=== PATIENT | male | born 1960 | race Caucasian/White ===

== ENCOUNTER 2020-04-08 08:50 | Outpatient (REF) | payer MEDICARE, MEDICAID, SELFPAY ==
--- NOTE | 2020-04-08 08:51 | CT_ITS ---
EXAMINATION: CT CHEST SCREENING CLINICAL INFORMATION: Lung screening. COMPARISON: CT chest 08/11/2008 TECHNIQUE: Multidetector volumetric CT imaging of the chest is performed without contrast using low dose technique. Additional 2D coronal and sagittal reformatted images and axial 3D maximum intensity projection (MIP) images are generated on the CT workstation. This CT examination was performed using dose optimization techniques as appropriate, variously including the following: *Automated exposure control *Adjustment of mA and/or kV according to patient size (this includes techniques or standardized protocols for targeted exams where dose is matched to indication/reason for exam; i.e. extremities or head) *Use of iterative reconstruction technique DLP: 131 mGy-cm FINDINGS: LUNGS: The lungs are well-expanded and clear of acute pneumonic process. There is a 2 mm subpleural nodule left upper lobe axial image 122/6. No additional pulmonary nodules, mass or consolidation seen. MEDIASTINUM: The heart size and great vessels are normal caliber. There are coronary artery calcifications present. No pericardial effusion seen. The central trachea and bronchi appear widely patent. PLEURA: There is no pleural effusion. No pleural mass or thickening. AXILLA: Small shotty lymph nodes are seen in bilateral axilla. UPPER ABDOMEN: Visualized liver, spleen and adrenal glands appear unremarkable. OSSEOUS STRUCTURES: There are mild degenerative disc changes mid dorsal spine with ventral spondylosis from T6-T7 through T9-T10 disc levels. No lytic process. The paravertebral soft tissues are normal. CT/CT lung screening IMPRESSION: Punctate 2 mm nodule left upper lobe. ASSESSMENT: Lung-RADS category 2: Benign. RECOMMENDATION: Low dose annual CT chest exam.
== END 2020-04-08 08:51 | disposition home or self-care (01) ==
LOC: HO.CT 08:50
PROVIDERS: PCP Internal Medicine; Visit Provider Surgery
DX: Z12.2 Encounter for screening for malignant neoplasm of respiratory organs (principal); F17.210 Nicotine dependence, cigarettes, uncomplicated
CPT/HCPCS: 71250

== ENCOUNTER → 2021-03-03 09:27 | Outpatient (BNVA) | payer MEDICARE, MEDICAID, SELFPAY | PROVIDERS: PCP Internal Medicine; Visit Provider Internal Medicine | DX: E66.01 Morbid (severe) obesity due to excess calories (principal); G47.33 Obstructive sleep apnea (adult) (pediatric); J45.909 Unspecified asthma, uncomplicated | CPT/HCPCS: 99212 ==

== ENCOUNTER → 2021-04-02 10:05 | Outpatient (REF) | payer MEDICARE, MEDICAID, SELFPAY | LOC: HO.SL 10:05 | PROVIDERS: PCP Internal Medicine; Visit Provider Internal Medicine | DX: G47.33 Obstructive sleep apnea (adult) (pediatric) (principal); E66.01 Morbid (severe) obesity due to excess calories | CPT/HCPCS: 95806 ==

== ENCOUNTER → 2021-05-27 15:18 | Outpatient (BNVA) | payer MEDICARE, MEDICAID, SELFPAY | PROVIDERS: PCP Internal Medicine; Visit Provider Internal Medicine | DX: G47.33 Obstructive sleep apnea (adult) (pediatric) (principal); J45.909 Unspecified asthma, uncomplicated; E66.01 Morbid (severe) obesity due to excess calories; Z68.42 Body mass index [BMI] 45.0-49.9, adult | CPT/HCPCS: 99212 ==

== ENCOUNTER 2021-07-10 14:06 | Emergency (ER) | payer MEDICARE, MEDICAID, SELFPAY ==
[2021-07-10 14:22] VITALS: BP 152/75; PULSE 74; RESP 18; TEMP 36.7; O2SAT 99; BMI 52.6
--- NOTE | 2021-07-10 14:33 | ED.GENADULT ---
HPI - General Adult General Chief complaint: General Medical Stated complaint: unable to move neck Time Seen by Provider: 07/10/21 14:27 Source: patient Mode of arrival: ambulatory Limitations: no limitations History of Present Illness HPI narrative: 60 y/o male with history of obesity, active smoker, BONNIE, asthma, chronic back pain on chronic opiates who presents to the ER with acute onset of ?stiff neck? that he woke up with this morning. He reports over the last 2 days he started feeling slight twinges in the left side of his neck and some tightness. He used a heating pad yesterday with some relief. He reports waking up this morning with very limited range of motion in the head and neck due to pain and muscle tension. He took 1 of his Percocet that he is prescribed for his chronic back pain with no improvement in the neck pain. He denies any photophobia, fever, chills, trauma. MD complaint: Stiff neck Onset (ago): day(s) (2) Location: neck and back Radiation: back Severity: severe Severity scale (1-10): 9 Quality: stabbing, aching and constant Pain Consistency: constant Relieving factors: immobilization Exacerbating factors: movement Associated symptoms: denies other symptoms Treatments prior to arrival: other (Percocet) Related Data Home Medications Medication Instructions Recorded Confirmed albuterol sulfate 90 mcg/actuation 0 mcg INHALATION 03/03/21 03/03/21 aerosol inhaler atenolol 50 mg-chlorthalidone 25 1 tab PO DAILY 03/03/21 03/03/21 mg tablet ibuprofen 800 mg tablet 800 mg PO BID PRN 03/03/21 03/03/21 omeprazole 20 mg capsule,delayed 20 mg PO DAILY 03/03/21 03/03/21 release oxycodone 15 mg tablet 15 mg PO TID PRN 03/03/21 03/03/21 acetaminophen 500 mg tablet 0 mg PO 05/27/21 potassium chloride 20 mEq 20 meq PO BID 05/27/21 tablet,extended release(part/cryst) (Klor-Con M) Previous Rx's Medication Instructions Recorded diazepam 5 mg tablet (Valium) 5 mg PO TID PRN #7 tab 07/10/21 ibuprofen 800 mg tablet 800 mg PO Q8H PRN #20 tab 07/10/21 lidocaine 5 % topical patch 1 patch TOPICAL DAILY #15 ea 07/10/21 Allergies Allergy/AdvReac Type Severity Reaction Status Date / Time tramadol [TRAMADOL] Allergy Intermediate UPSET Verified 05/27/21 15:41 STOMACH, GI Upset hydromorphone [Dilaudid] Allergy Unknown unknown Verified 05/27/21 15:41 Review of Systems Review of Systems: Constitutional: No Fever, No Chills Cardiovascular: No Chest Pain, No SOB Gastrointestinal: No Nausea, No Vomiting, No abdominal Pain Musculoskeletal: + joint pain, + Myalgias Skin: No Skin Lesions, No rash Neuro: No Weakness, No Numbness, No Dizziness, No Headache Heme/Lymph: No Bruising, No Lymphadenopathy PMFSH Past Medical History Medical History Bronchial asthma Morbid exogenous obesity BONNIE (obstructive sleep apnea) Social History Social History Patient Tobacco Use Status: Current everyday Tobacco user Cigarette Packs Per Day: 1 Cigarettes Per Day: 20 Years Smoked: 59 years Advance Directives: No Advance Directives Information Provided: No Physical Exam ED Vital Signs: Vital Signs - 24 hr 07/10/21 14:22 Temperature 98.0 F Pulse Rate 74 Respiratory Rate 18 Blood Pressure 152/75 H Pulse Oximetry 99 BMI result Body Mass Index 52.6 Appearance: Alert. Oriented X3. Appears uncomfortable. Eyes: Pupils equal, round and reactive to light. ENT: Pharynx normal. Neck: Normal inspection. Diffuse soft tissue tenderness of the superior trapezius and left lateral soft tissues of the neck. Limited range of motion including rotation side to side due to pain. No nuchal rigidity. Skin changes. Upper back also with diffuse muscle spasm and tenderness. No midline tenderness. CVS: Normal heart rate and rhythm. Pulses normal. Respiratory: No respiratory distress. Breath sounds normal. Abdomen: Morbidly obese, Soft and nontender. +BS x4 Skin: Skin warm and dry. Normal skin color. Normal skin turgor. No rashes. Extremities: Normal inspection x4. Neuro: Oriented X 3. No motor deficit. No sensory deficit. Equal hand grasp bilaterally. Nonfocal. Ambulates with steady gait. Course Course Course Narrative: 60 y/o male presents to the ER with acute onset of nontraumatic neck pain and limited ROM with diffuse muscle tenderness. No meningeal signs. 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 Will treat with muscle relaxers, NSAIDS, gentle massage and ROM exercises. Management discussed with patient. Declining muscle relaxer here and would like to go home with Rx. Given IM toradol. Stable for d/c home. Discharge Plan Discharge Clinical Impression: Torticollis Patient Disposition: Home, Self-Care Instructions: Spasmodic Torticollis (ED) Additional Instructions: Take the prescribed medications as directed. Do not drive after taking Valium, it is a muscle relaxer that can cause lethargy. Use heat to the area several times per day. Work on gentle range of motion exercise in your head/neck. Gently massage the area to help ease muscle tension. Use topical Bengay or IcyHot to the area. Follow up with your doctor on Tuesday. If you develop new or worsening symptoms call 911 or come back to the ER for further evaluation. Prescriptions: New diazepam [Valium] 5 mg tablet 5 mg PO TID PRN (Reason: muscle spasm) Qty: 7 0RF ibuprofen 800 mg tablet 800 mg PO Q8H PRN (Reason: pain) Qty: 20 0RF lidocaine 5 % adhesive patch,medicated 1 patch topical DAILY Qty: 15 0RF Rx Instructions: leave on most painful area for up to 12 hrs No Action oxycodone 15 mg tablet 15 mg PO TID PRN0RF omeprazole 20 mg capsule,delayed release(DR/EC) 20 mg PO DAILY 0RF atenolol-chlorthalidone 50-25 mg tablet 1 tab PO DAILY 0RF albuterol sulfate 90 mcg/actuation HFA aerosol inhaler 0 mcg inhalation 0RF ibuprofen 800 mg tablet 800 mg PO BID PRN0RF potassium chloride [Klor-Con M20] 20 mEq tablet,ER particles/crystals 20 meq PO BID 0RF acetaminophen 500 mg tablet 0 mg PO 0RF
[2021-07-10] MEDS: Ketorolac Tromethamine 30 MG/ML VIAL IM (14:40)
[2021-07-10 14:52] VITALS: RESP 18
== END 2021-07-10 14:52 | disposition home or self-care (01) ==
PROVIDERS: Emergency Provider Emergency Medicine; PCP Internal Medicine
DX: M43.6 Torticollis (principal); F17.210 Nicotine dependence, cigarettes, uncomplicated; Z79.899 Other long term (current) drug therapy; Z71.6 Tobacco abuse counseling
CPT/HCPCS: 96372; 99283; 99284; J1885

== ENCOUNTER 2021-07-20 09:16 | Outpatient (REF) | payer MEDICARE, MEDICAID, SELFPAY ==
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
== END 2021-07-20 09:17 | disposition home or self-care (01) ==
LOC: HO.XRAY 09:16
PROVIDERS: PCP Internal Medicine; Visit Provider Internal Medicine
DX: M54.2 Cervicalgia (principal); M54.9 Dorsalgia, unspecified
CPT/HCPCS: 72052; 72072

== ENCOUNTER 2021-08-05 09:26 | Outpatient (REF) | payer MEDICARE, MEDICAID, SELFPAY ==
--- NOTE | ~2021-08-05 | CT_ITS ---
EXAMINATION: CT CHEST SCREENING CLINICAL INFORMATION: Nicotine dependent. COMPARISON: None. TECHNIQUE: Multidetector volumetric CT imaging of the chest is performed without contrast using low dose technique. Additional 2-D coronal and sagittal reformatted images and axial 3-D maximum intensity projection (MIP) images are generated on the CT workstation. This CT examination was performed using dose optimization techniques as appropriate, variously including the following: *Automated exposure control *Adjustment of mA and/or kV according to patient size (this includes techniques or standardized protocols for targeted exams where dose is matched to indication/reason for exam; i.e. extremities or head) *Use of iterative reconstruction technique DLP: 120 mGy-cm FINDINGS: LUNGS: The lungs are well expanded with a 3 mm nodule right upper lobe axial image 204/6. No additional nodules, mass or consolidation seen. No ground-glass density seen. MEDIASTINUM: The thyroid lobes are symmetric and normal. The central trachea and the bronchi are widely patent. Heart size and the great vessels are normal caliber. There are coronary artery calcifications present. No pericardial effusion seen. No abnormal sized mediastinal lymph nodes or mass seen. PLEURA: There is no pleural effusion. No pleural mass or thickening. AXILLA: No lymphadenopathy. UPPER ABDOMEN: The visualized liver, spleen, pancreas, and bilateral adrenal glands are unremarkable. OSSEOUS STRUCTURES: No lytic or sclerotic process seen. There is mild ventral spondylosis of mid dorsal spine. CT/CT lung screening IMPRESSION: 3 mm nodule right upper lobe. Trace coronary artery calcifications. ASSESSMENT: Lung-RADS category 2: Benign. RECOMMENDATION: Low-dose annual CT chest.
== END 2021-08-05 09:27 | disposition home or self-care (01) ==
LOC: HO.CT 09:26
PROVIDERS: PCP Internal Medicine; Visit Provider Physician Assistant Medical
DX: Z12.2 Encounter for screening for malignant neoplasm of respiratory organs (principal); F17.200 Nicotine dependence, unspecified, uncomplicated; R91.1 Solitary pulmonary nodule
CPT/HCPCS: 71271

== ENCOUNTER 2021-08-18 10:00 | Outpatient (RCR) | payer MEDICARE, MEDICAID, SELFPAY | END 2021-08-18 14:35 | disposition home or self-care (01) | LOC: HO.PT 10:00 | PROVIDERS: PCP Internal Medicine; Visit Provider Internal Medicine | DX: M54.2 Cervicalgia (principal); M54.9 Dorsalgia, unspecified | CPT/HCPCS: 97110; 97140; 97161; 97530 ==

== ENCOUNTER → 2021-11-05 15:10 | Outpatient (BNVA) | payer MEDICARE, MEDICAID, SELFPAY | PROVIDERS: PCP Internal Medicine; Referring Provider Internal Medicine; Visit Provider Nurse Practitioner | DX: R19.5 Other fecal abnormalities (principal); K21.9 Gastro-esophageal reflux disease without esophagitis | CPT/HCPCS: 99202 ==

== ENCOUNTER → 2021-12-01 09:53 | Outpatient (BNVA) | payer MEDICARE, MEDICAID, SELFPAY | PROVIDERS: PCP Internal Medicine; Visit Provider Internal Medicine | DX: G47.33 Obstructive sleep apnea (adult) (pediatric) (principal); J45.909 Unspecified asthma, uncomplicated; E66.01 Morbid (severe) obesity due to excess calories; Z68.43 Body mass index [BMI] 50.0-59.9, adult | CPT/HCPCS: 99212 ==

== ENCOUNTER → 2021-12-17 15:20 | Outpatient (BNVA) | payer MEDICARE, MEDICAID, SELFPAY | PROVIDERS: PCP Internal Medicine; Visit Provider Nurse Practitioner | DX: R19.5 Other fecal abnormalities (principal) | CPT/HCPCS: 99212 ==

== ENCOUNTER → 2022-01-15 09:19 | Outpatient (BNVA) | payer MEDICARE, MEDICAID, SELFPAY | PROVIDERS: PCP Internal Medicine; Visit Provider Nurse Practitioner | DX: R19.5 Other fecal abnormalities (principal); K21.9 Gastro-esophageal reflux disease without esophagitis; R79.89 Other specified abnormal findings of blood chemistry | CPT/HCPCS: 99212 ==

== ENCOUNTER 2022-05-26 07:57 | Day surgery (SDC) | payer MEDICARE, MEDICAID, SELFPAY ==
[2022-05-21 19:39] VITALS: BMI 45.4
--- NOTE | 2022-05-25 09:06 | P.CONAN_ITS ---
Documented by User: Donna Little NP 05/25/22 09:08 HPI - Anesthesia Eval Consult details Narrative: 61yo M for Colonoscopy PMFSH Active Problems Active Problems: All Active Problems (Updated 05/21/22 @ 19:36 by Jazmin Carbajal, RN) Smoker (Acute) Transaminitis (Acute) Positive FIT (fecal immunochemical test) (Acute) Positive colorectal cancer screening using Cologuard test (Acute) Bronchial asthma (Acute) BONNIE (obstructive sleep apnea) (Acute) Morbid exogenous obesity (Acute) Past Medical History Medical History (Updated 05/21/22 @ 19:36 by Jazmin Carbajal, RN) Back pain Bronchial asthma GERD (gastroesophageal reflux disease) High cholesterol Hypertension Marijuana smoker Morbid exogenous obesity BONNIE (obstructive sleep apnea) Pre-diabetes Family History Family History Mother Cancer Father Diabetes Surgical History Surgical History History of back surgery Hx of hemorrhoidectomy Hx of thumb surgery Hx of tonsillectomy Hx of tooth extraction Social History Social History Are you a primary child care group leader to a significant other at home: No Do you presently have visiting nurse or other home services: No Patient Tobacco Use Status: Current everyday Tobacco user Tobacco use type: Cigarette Cigarette Packs Per Day: 1.5 Cigarettes Per Day: 30.0 Years Smoked: 49 Smoked in Last 30 Days: Yes Use of substances other than those prescribed or required for medical reasons: Yes Substance Use Type Other:: SMOKES MULTIPLE TIMES DAILY Substance Use Frequency: Daily Have you been hit, kicked, punched, or otherwise hurt by someone within the past year? If so, by whom?: No Are you DNR?: No Advance Directives: No Advance Directives Information Provided: Yes Advance Directives on File: No Recently lost weight without trying: No Nutrition Risks: No Nutritional Risk Meds Allergies Allergy/AdvReac Type Severity Reaction Status Date / Time tramadol [TRAMADOL] Allergy Intermediate UPSET Verified 01/15/22 09:27 STOMACH, GI Upset hydromorphone [Dilaudid] Allergy Unknown unknown Verified 01/15/22 09:27 Home Medications Medication Instructions Recorded Confirmed Last Taken Type albuterol sulfate 90 mcg/actuation 2 puff inhalation DAILY 03/03/21 05/21/22 Unknown History aerosol inhaler atenolol 50 mg-chlorthalidone 25 1 tab PO DAILY 03/03/21 05/21/22 Unknown History mg tablet omeprazole 20 mg capsule,delayed 20 mg PO DAILY 03/03/21 05/21/22 Unknown History release oxycodone 15 mg tablet 15 mg PO TID PRN Pain 03/03/21 05/21/22 Unknown History fenofibrate 54 mg tablet 54 mg PO DAILY 11/05/21 05/21/22 Unknown History metformin 500 mg tablet,extended 500 mg PO DAILY 11/05/21 05/21/22 Unknown History release 24 hr potassium chloride 20 mEq 1 tab PO BID 05/21/22 05/21/22 Unknown History tablet,extended release(part/cryst) (Alma Rosado) Exam Exam Date and Time: May 25, 2022 0907 Height,Weight and Vital Signs: Height 5 ft 9 in Weight 139.706 kg Assessment and Plan Assessment Anesthesia Assessment: Chart Reviewed Documented by User: Afia Lemus MD 05/26/22 08:55 [facility] Past Medical History Medical History (Updated 05/21/22 @ 19:36 by Jazmin Carbajal RN) Back pain Bronchial asthma GERD (gastroesophageal reflux disease) High cholesterol Hypertension Marijuana smoker Morbid exogenous obesity BONNIE (obstructive sleep apnea) Pre-diabetes Family History Family History Mother Cancer Father Diabetes Family history of problems with anesthesia: No Surgical History Surgical History History of back surgery Hx of hemorrhoidectomy Hx of thumb surgery Hx of tonsillectomy Hx of tooth extraction History of Problems with Anesthesia: No Social History Social History Are you a primary child care group leader to a significant other at home: No Do you presently have visiting nurse or other home services: No Patient Tobacco Use Status: Current everyday Tobacco user Tobacco use type: Cigarette Cigarette Packs Per Day: 1.5 Cigarettes Per Day: 30.0 Years Smoked: 49 Smoked in Last 30 Days: Yes Use of substances other than those prescribed or required for medical reasons: Yes Substance Use Type Other:: SMOKES MULTIPLE TIMES DAILY Substance Use Frequency: Daily Have you been hit, kicked, punched, or otherwise hurt by someone within the past year? If so, by whom?: No Are you DNR?: No Advance Directives: No Advance Directives Information Provided: Yes Advance Directives on File: No Recently lost weight without trying: No Nutrition Risks: No Nutritional Risk Meds Allergies Allergy/AdvReac Type Severity Reaction Status Date / Time tramadol [TRAMADOL] Allergy Intermediate UPSET Verified 01/15/22 09:27 STOMACH, GI Upset hydromorphone [Dilaudid] Allergy Unknown unknown Verified 01/15/22 09:27 Home Medications Medication Instructions Recorded Confirmed Last Taken Type albuterol sulfate 90 mcg/actuation 2 puff inhalation DAILY 03/03/21 05/21/22 Unknown History aerosol inhaler atenolol 50 mg-chlorthalidone 25 1 tab PO DAILY 03/03/21 05/21/22 Unknown History mg tablet omeprazole 20 mg capsule,delayed 20 mg PO DAILY 03/03/21 05/21/22 Unknown History release oxycodone 15 mg tablet 15 mg PO TID PRN Pain 03/03/21 05/21/22 Unknown History fenofibrate 54 mg tablet 54 mg PO DAILY 11/05/21 05/21/22 Unknown History metformin 500 mg tablet,extended 500 mg PO DAILY 11/05/21 05/21/22 Unknown History release 24 hr potassium chloride 20 mEq 1 tab PO BID 05/21/22 05/21/22 Unknown History tablet,extended release(part/cryst) (Klor-Con M) Exam Airway Mallampati Class: II TM Dist: >3cm Neck ROM: Full Denture: Upper and Lower Heart: rrr Lungs: cta Assessment and Plan Assessment Anesthesia Assessment: Anesthesia Plan Discussed Final Anesthetic Review Family History of Problems with Anesthesia: No History of Problems with Anesthesia: No NPO: Yes ASA Class: III Final Preanesthetic Review: No Changes in Pt Med Stat, Meds/Allgs Chart Reviewed and Consent Obtained/Reviewed Patient Risk: Intermediate Procedure Risk: Intermediate Anesthetic Plan Anesthetic Plan: MAC: Disposition: Standard PACU
[2022-05-26 08:02] VITALS: BP 149/85; PULSE 81; RESP 18; TEMP 36.2; O2SAT 96
[2022-05-26 08:13] VITALS: BMI 45.4
[2022-05-26] MEDS: Lactated Ringers 1,000 ML 100 ML IVCONT (08:36)
[2022-05-26 08:48] LABS: Glucose, Whole Blood 125 mg/dL (60-115)
--- NOTE | 2022-05-26 09:09 | MHC.SHP ---
Pre-Procedural Eval Section A Date of Service: 05/26/22 Section B Chief Complaint: positive cologuard Details of Present Illness: 61 y.o M who is here for a diagnostic colonoscopy after a positive cologuard. No fam hx of colon cancer or advanced polyps Relevant Family History (Specify if Yes): No Present Medications: see Short Stay Collaborative assessment Medical History: Significant History (morbid obesity BMI 45, BONNIE) Allergies: Allergies Allergy/AdvReac Type Severity Reaction Status Date / Time tramadol [TRAMADOL] Allergy Intermediate UPSET Verified 01/15/22 09:27 STOMACH, GI Upset hydromorphone [Dilaudid] Allergy Unknown unknown Verified 01/15/22 09:27 Review of Systems Review of Systems Comment: 10 point ROS negative except as above Exam Exam Comment: Gen appear: No acute distress, well nourished HEENT: no icterus Chest: No overt resp distress Abd: soft, nontender, nondistended Psych: Stable affect, answering questions appropriately Neuro: A/Ox3 noted to move all extremities spontaneously Ext: no peripheral edema Plan Diagnosis/Plan: Unchanged I have reviewed the history and physical and performed a pertinent physical examination on my patient. No changes have occurred unless specified. Time Spent With Patient Time: Total time managing care of this patient today ____ minutes.
--- NOTE | 2022-05-26 09:20 | P.OP_ITS ---
Operative Note Operative Note Date of Service: 05/26/22 Narrative: Procedure: Colonoscopy Indication: + FIT test Endoscopist: Ellie Dewey MD Anesthesia Provider: Dr Afia Longoria Anesthesia type: MAC Instrument: Olympus [id number] Consent: Indication, risks vs benefits, and alternatives were discussed with the patient who gave written informed consent to proceed. EKG, pulse, pulse oximetry and blood pressure were monitored throughout the procedure. Please see anesthesia flowsheet. Procedure: The patient was brought to the procedure room and placed in the left lateral decubitus position. IV medications were administered by the anesthesia provider in attendance. A digital rectal exam was performed which was normal. The colonoscope was then inserted through the anus and advanced through the colon to the cecum at 85 cm. Mucosa was carefully examined under high definition white light as the instrument was slowly withdrawn in a retrograde panoramic fashion. Retroflexion was performed in rectum. The procedure was not difficult. There were no immediate obvious complications. The quality of the prep was BBPS: 2+3+2 = adequate Withdrawal time 40 minutes. Limitations: No limitations. Findings: Mucosa: Normal to cecum. Protruding lesions: * 1 sessile polyp of size 8 mm in transverse colon. Cold snare polypectomy was performed. The polyp was completely removed and retrieved. * 3 semi-pedunculated polyps of size 8-13 mm in transverse colon. Hot snare polypectomy was performed. The polyps were completely removed and retrieved. * 1 sessile polyp of size 22 mm in transverse colon. The polyp spanned over a fold. It was lifted with 3 cc of saline and then 3 cc of epi were injected in the base. Hot snare polypectomy was performed. The polyp was completely removed and retrieved using a rescue net. x2 Resolution 360 clips were placed at the polypectomy site. This was sent out in a separate jar. * 1 semi-pedunculated polyp of size 12 mm in sigmoid colon. Hot snare polypectomy was performed. The polyps were completely removed and retrieved. * 1 sessile polyp of size 5 mm in rectum. Cold snare polypectomy was performed. The polyp was completely removed and retrieved. * Medium internal hemorrhoids without stigmata of recent bleeding. Excavated lesions: * Few small mouthed diverticuli were noted in sigmoid colon. Impression: 1. Normal colon mucosa 2. Total of 7 polyps removed from transverse, and sigmoid colon and rectum. 3. Internal hemorrhoids 4. Mild diverticulosis Recommendations: - Follow path results. - Repeat colonoscopy in 3 years due to size and number of polyps. - Pt counseled regarding risk of post-polypectomy syndrome and bleeding in recovery area.
[2022-05-26 10:36] VITALS: BP 141/84; PULSE 74; RESP 16; TEMP 37.1; O2SAT 95
[2022-05-26 10:51] VITALS: BP 118/89; PULSE 70; RESP 16; TEMP 36.6; O2SAT 95
== END 2022-05-26 11:17 | disposition home or self-care (01) ==
PROVIDERS: Internal Medicine Gastroenterology; PCP Internal Medicine; Visit Provider Internal Medicine
PROC: 0DJD8ZZ Inspection of Lower Intestinal Tract, Via Natural or Artificial Opening Endoscopic (ICD-10-PCS; CPT 45378; principal; 2022-05-26 09:20)
DX: R19.5 Other fecal abnormalities (principal); D12.3 Benign neoplasm of transverse colon; D12.5 Benign neoplasm of sigmoid colon; K62.1 Rectal polyp; K57.30 Diverticulosis of large intestine without perforation or abscess without bleeding; K64.8 Other hemorrhoids; K21.9 Gastro-esophageal reflux disease without esophagitis; I10 Essential (primary) hypertension; E78.00 Pure hypercholesterolemia, unspecified; G47.33 Obstructive sleep apnea (adult) (pediatric); E66.01 Morbid (severe) obesity due to excess calories; E66.09 Other obesity due to excess calories; Z68.42 Body mass index [BMI] 45.0-49.9, adult; J45.909 Unspecified asthma, uncomplicated; R73.03 Prediabetes; Z79.84 Long term (current) use of oral hypoglycemic drugs; Z79.899 Other long term (current) drug therapy; Z88.8 Allergy status to other drugs, medicaments and biological substances; F12.90 Cannabis use, unspecified, uncomplicated; F17.210 Nicotine dependence, cigarettes, uncomplicated
CPT/HCPCS: 45385; 45381; 82947; 88305; J0171

== ENCOUNTER → 2022-06-09 08:20 | Outpatient (BNVA) | payer MEDICARE, MEDICAID, SELFPAY | PROVIDERS: PCP Internal Medicine; Visit Provider Nurse Practitioner | DX: R19.5 Other fecal abnormalities (principal); D12.6 Benign neoplasm of colon, unspecified; E66.09 Other obesity due to excess calories; I10 Essential (primary) hypertension; R73.03 Prediabetes; E78.00 Pure hypercholesterolemia, unspecified; F17.210 Nicotine dependence, cigarettes, uncomplicated; Z68.42 Body mass index [BMI] 45.0-49.9, adult | CPT/HCPCS: 99212 ==

== ENCOUNTER → 2022-06-15 10:17 | Outpatient (BNVA) | payer MEDICARE, MEDICAID, SELFPAY | PROVIDERS: PCP Internal Medicine; Visit Provider Internal Medicine | DX: G47.33 Obstructive sleep apnea (adult) (pediatric) (principal); J45.909 Unspecified asthma, uncomplicated; E66.01 Morbid (severe) obesity due to excess calories; Z68.42 Body mass index [BMI] 45.0-49.9, adult | CPT/HCPCS: 99212 ==

== ENCOUNTER 2022-09-10 08:13 | Outpatient (REF) | payer MEDICARE, MEDICAID, SELFPAY ==
--- NOTE | ~2022-09-10 | CT_ITS ---
EXAMINATION: CT CHEST SCREENING CLINICAL INFORMATION: Nicotine dependence. Current smoker. One pack per day x50 years. COMPARISON: CT chest 08/05/2021 TECHNIQUE: Multidetector volumetric CT imaging of the chest is performed without contrast using low dose technique. Additional 2D coronal and sagittal reformatted images and axial 3D maximum intensity projection (MIP) images are generated on the CT workstation. This CT examination was performed using dose optimization techniques as appropriate, variously including the following: *Automated exposure control *Adjustment of mA and/or kV according to patient size (this includes techniques or standardized protocols for targeted exams where dose is matched to indication/reason for exam; i.e. extremities or head) *Use of iterative reconstruction technique DLP: 131 mGy-cm FINDINGS: LUNGS: The lungs are well-expanded and clear of acute pneumonic process. Previously seen right lower lobe pulmonary nodule adjacent to major fissure is not visualized. There are no pulmonary nodules, mass or consolidation. MEDIASTINUM: The thyroid lobes are symmetric and normal. The central trachea and the bronchi are widely patent. Heart size and the great vessels are normal caliber. No abnormal size mediastinal or hilar lymph nodes CORONARY ARTERY CALCIFICATION: Mild coronary artery calcifications are visualized. PLEURA: There is no pleural effusion. No pleural mass or thickening. AXILLA: No lymphadenopathy. UPPER ABDOMEN: Unremarkable . OSSEOUS STRUCTURES: No aggressive lytic or sclerotic process seen. Mild ventral spondylosis dorsal spine. CT/CT lung screening IMPRESSION: Unremarkable CT chest exam. ASSESSMENT: Lung-RADS category 1: Negative. RECOMMENDATION: Low-dose annual CT chest.
== END 2022-09-10 08:14 | disposition home or self-care (01) ==
LOC: HO.CT 08:13
PROVIDERS: PCP Internal Medicine; Visit Provider Physician Assistant Medical
DX: Z12.2 Encounter for screening for malignant neoplasm of respiratory organs (principal); F17.210 Nicotine dependence, cigarettes, uncomplicated
CPT/HCPCS: 71271

== ENCOUNTER 2022-12-09 10:09 | Outpatient (AMB) | payer MEDICARE, MEDICAID, SELFPAY ==
[2022-12-09 10:15] VITALS: PULSE 61; O2SAT 98; BMI 45.9
--- NOTE | 2022-12-09 10:15 | A.OFFVIS_ITS ---
Intake Vital Signs 12/09/22 10:15 Height 5 ft 9 in Weight 310 lb 13.628 oz BMI 45.9 Pulse 61 Pulse Source Pulse Oximeter Pulse Oximetry (%) 98 Oxygen Delivery Method Room Air Intake Visit Reasons: alessia, Asthma Poultry Packer Required: No Allergies tramadol [TRAMADOL] Allergy (Intermediate, Verified 12/09/22 10:27) UPSET STOMACH, GI Upset hydromorphone [Dilaudid] Allergy (Unknown, Verified 12/09/22 10:27) unknown Medication List - Last Reconciled 12/09/22 by Quoc Smith MD albuterol sulfate 90 mcg/actuation 2 puffs inhalation DAILY atenolol-chlorthalidone 50-25 mg 1 tab PO DAILY gabapentin 300 mg PO BEDTIME ibuprofen 800 mg PO Q8H PRN lidocaine 5% 1 patch topical DAILY metformin ER 500 mg PO DAILY omeprazole 20 mg PO DAILY oxycodone 15 mg PO TID PRN potassium chloride ER (Klor-Con M) 20 mEq PO DAILY Do you need a note to return to daycare/school/sports/work: No HPI alessia HPI Details 62 years old gentleman with morbid obesity, Comes for 6 months follow-up for bronchial asthma/ALESSIA. Breathing has remained stable and he needs to use the rescue inhaler only 2 or 3 times per week. He has had. No acute exacerbations Weight shannon remains morbidly obese but has lost about 15 lb since his last visit in May. He is disabled, not physically very active except for doing some household works. He is trying to control. His diet As far as obstructive sleep apnea is concerned it is well controlled with the use of CPAP. He is very compliant, infected cannot sleep without putting on the CPAP mask. He has no issues with the mask or CPAP device. [facility] Medical History Back pain Bronchial asthma GERD (gastroesophageal reflux disease) High cholesterol Hypertension Marijuana smoker Morbid exogenous obesity Nicotine dependence, cigarettes, uncomplicated ALESSIA (obstructive sleep apnea) Pre-diabetes Surgical History History of back surgery Hx of hemorrhoidectomy Hx of thumb surgery Hx of tonsillectomy Hx of tooth extraction Family History Mother Cancer Father Diabetes Social History Are you a primary healthcare interpreter to a significant other at home: No Do you presently have visiting nurse or other home services: No Patient Tobacco Use Status: Current everyday Tobacco user Tobacco use type: Cigarette Cigarette Packs Per Day: 1.5 Cigarettes Per Day: 30.0 Years Smoked: 49 Review of Systems Const All systems reviewed & are unremarkable except as noted in HPI and below Eyes Reports no additional complaints ENT Reports no additional complaints Card Denies chest pain, Denies irregular heart rhythm and Denies leg edema Resp Reports as per HPI GI Reports no additional complaints Reports no additional complaints Musc Reports back pain and Reports arthralgias (Niece mostly) Skin/Breast Reports system reviewed and no additional complaints, except as documented Neuro Reports no additional complaints Psych Reports no additional complaints Physical Exam Vital Signs: Last Vital Signs Pulse 61 12/09/22 10:15 Pulse Ox 98 12/09/22 10:15 Oxygen Delivery Method Room Air 12/09/22 10:15 BMI result Body Mass Index 45.9 Const Other: Grossly overweight with round face. General: comfortable, no acute distress, alert and awake Orientation/consciousness: patient oriented x3 HEENT Head: Yes normal to inspection General nose exam: No nasal polyps present and No nasal discharge present Face and sinus: Yes sinuses nontender Mouth: oropharynx abnormals (Very crowded and narrow, Mallampati class 4) Throat: Yes posterior oropharynx normal Eyes General: appearance normal, both eyes and all related structures Neck Neck: Yes normal visual inspection, Yes no lymphadenopathy, Yes trachea midline, Yes no JVD and Yes other (Neck is very obese) Thyroid: Thyroid normal Chest Chest palpation & inspection: normal inspection of the chest, normal palpation of entire chest wall and no tenderness Resp Other: Percussion note not perceptible because of thick chest wall. Breath sounds are diminished ( especially over the basilar areas ) but equal on both sides. No audible wheezes rhonchi or crepitations are heard. Cardio Palpation: normal PMI Rate: regular rate Rhythm: regular rhythm Heart sounds: no gallops and no murmurs GI Palpation (GI): Soft to palpation, nontender, No hepatosplenomegaly present, no masses and Other GI palpation findings present (Abdomen is obese and protuberant) Auscultation: normal bowel sounds Back/Spine/Pelvis Thoracic/Lumbar Spine: thoracic and lumbar spine normal to inspection, thoraco- lumbar ROM limited and thoraco-lumbar spasm Skin General skin exam: no rashes or lesions noted Neuro General: patient oriented x3 and no focal motor deficits Cranial nerves: Yes CN's II-XII intact bilaterally Extrem General: Yes normal to inspection, Yes no clubbing, cyanosis or edema and Yes no calf tenderness Psych Appearance: grossly normal and well kempt Speech and movement: Normal speech and movement present Office Procedures Spirometry Testing Spirometry Comments: Spriometry done in the office, Dr. Smith has the results results scanned to his chart. [id number]- Spirometry Results Reviewed Results Reviewed: SPIROMETRY IN OFFICE Assessment & Plan Assessment & Plan (1) Morbid exogenous obesity: Comment: Patient trying to watch his diet, but cannot exercise much. He has lost SOME weight since his last visit. Does not want to join any weight management program. Instructed again about limiting his diet intake and doing some exercise . Code(s): E66.01 - Morbid (severe) obesity due to excess calories (2) LAESSIA (obstructive sleep apnea): Comment: HE DOES HAVE SEVERE OBSTRUCTIVE SLEEP APNEA. CURRENTLY USING PRESSURE OF 20 CM WITH A FULLFACE MASK. HE REMAINS VERY COMPLIANT AND ACTUALLY CANNOT SLEEP WITHOUT USING THE CPAP, COMMENDED FOR GOOD COMPLIANCE AND ADVISED TO CONTINUE USING IT EVERY NIGHT AT LEAST FOR 6 HOURS PER NIGHT. Code(s): G47.33 - Obstructive sleep apnea (adult) (pediatric) (3) Bronchial asthma: Comment: BRONCHIAL ASTHMA IS VERY MILD AND INTERMITTENT, SPIROMETRY =NORMAL MILD COUGH RELATED MOSTLY TO SMOKING. COUNSELED TO QUIT SMOKING BUT HE HAS NO INTENSION TO DO THAT ( AFRAID THAT HE WILL GAIN WEIGHT 0 AND MAY USE ALBUTEROL HFA ONLY P.R.N.. Code(s): J45.909 - Unspecified asthma, uncomplicated (4) Nicotine dependence, cigarettes, uncomplicated: Comment: CONTINUES TO SMOKE, 1 AND HALF PACK A DAY, HE SAY IS THAT HE HAS CUT DOWN FROM 2 PACKS TO 1.5 PACK. DOES NOT HAVE ANY WILL POWER ON INTENTION TO QUIT SMOKING COMPLETELY. HE IS IN ANNUAL LUNG SCREENING PROGRAM. Code(s): F17.210 - Nicotine dependence, cigarettes, uncomplicated Coding Level of Care Code Est Pt Level 3 (77214) Diagnoses Morbid exogenous obesity E66.01 ALESSIA (obstructive sleep apnea) G47.33 Bronchial asthma J45.909 Nicotine dependence, cigarettes, uncomplicated F17.210 CPT Codes Spirometry - CPT: 73219- Spirometry ([id number])
== END 2022-12-09 10:55 | disposition home or self-care (01) ==
PROVIDERS: PCP Internal Medicine; Visit Provider Internal Medicine
DX: E66.01 Morbid (severe) obesity due to excess calories (principal); G47.33 Obstructive sleep apnea (adult) (pediatric); J45.909 Unspecified asthma, uncomplicated; F17.210 Nicotine dependence, cigarettes, uncomplicated
CPT/HCPCS: 94010; 99213

== ENCOUNTER → 2022-12-09 10:09 | Outpatient (BNVA) | payer MEDICARE, MEDICAID, SELFPAY | PROVIDERS: PCP Internal Medicine; Visit Provider Internal Medicine | DX: J45.909 Unspecified asthma, uncomplicated (principal); G47.33 Obstructive sleep apnea (adult) (pediatric); F17.210 Nicotine dependence, cigarettes, uncomplicated | CPT/HCPCS: 94010; 99212 ==

== ENCOUNTER 2023-04-28 12:34 | Outpatient (REF) | payer MEDICARE, MEDICAID, SELFPAY | END 2023-04-28 12:35 | disposition home or self-care (01) | LOC: HO.MRI 12:34 | PROVIDERS: PCP Internal Medicine; Visit Provider Internal Medicine | DX: Z13.89 Encounter for screening for other disorder (principal) ==

== ENCOUNTER 2023-06-28 10:26 | Outpatient (AMB) | payer MEDICARE, MEDICAID, SELFPAY ==
--- NOTE | 2023-06-28 10:27 | A.OFFVIS_ITS ---
Intake Vital Signs 06/28/23 10:28 Height 5 ft 9 in BP 120/72 Blood Pressure Location Lt brachial Position Sitting Pulse 61 Pulse Source Pulse Oximeter Pulse Oximetry (%) 97 Oxygen Delivery Method Room Air Intake Visit Reasons: alessia Intake Note: pt is here for follow up and states he is alright, breathing was short winded on vacation, using cpap with no issues. would like replacement machine, it has been 5 years. Dramatic Director Required: No Allergies tramadol [TRAMADOL] Allergy (Intermediate, Verified 06/28/23 10:56) UPSET STOMACH, GI Upset hydromorphone [Dilaudid] Allergy (Unknown, Verified 06/28/23 10:56) unknown Medication List - Last Reconciled 06/28/23 by Quoc Smith MD albuterol sulfate 90 mcg/actuation 2 puffs inhalation DAILY atenolol-chlorthalidone 50-25 mg 1 tab PO DAILY gabapentin 400 mg PO BEDTIME ibuprofen 800 mg PO Q8H PRN lidocaine 5% 1 patch topical DAILY metformin ER 500 mg PO DAILY omeprazole 20 mg PO DAILY oxycodone 15 mg PO TID PRN potassium chloride ER (Klor-Con M) 20 mEq PO DAILY Do you need a note to return to daycare/school/sports/work: No HPI alessia HPI Details THIS 62 YEARS OLD GENTLEMAN WITH MORBID OBESITY, AND DIAGNOSIS OF OBSTRUCTIVE SLEEP APNEA SINCE 2008, COMES FOR FOLLOW-UP FOR HIS USE OF CPAP AND LOOKING FOR HAVING A NEW REPLACEMENT CPAP DEVICE. HOWEVER ACCORDING TO OUR RECORDS HE GOT THE NEW DEVICE BACK IN 2020, BUT IT NEEDS TO BE DOUBLE CHECKED. HE CLAIMS THAT HE USES HIS CPAP VERY REGULARLY EVERY NIGHT AND SLEEPS WELL. THE COMPLIANCE REPORT INDICATES THAT HE IS USING LESS THAN 4 HOURS PER NIGHT BUT HE INSISTS THAT HE KEEPS THE CPAP ON WHOLE NIGHT. HE SAY IS HE CAN NOT SLEEP WITHOUT THE USE OF CPAP. .HE DENIES DAYTIME SLEEPINESS THE PROBLEM IS THAT HE REMAINS MORBIDLY OBESE, DID NOT WANT TO BE WEIGHED TODAY. HE IS TRYING TO CUT DOWN, ON PORTIONS OF THE DIET BUT DOES NOT WANT TO GO TO ANY STRUCTURED WEIGHT MANAGEMENT PROGRAM. HE SMOKING 1 AND HALF PACK OF CIGARETTES A DAY. HAD A LONG TALK, BUT HE INSISTS ON KEEPING ON SMOKING. HE IS ALSO USING MARIJUANA ON A DAILY BASIS( SMOKING) HIS EXCUSES THAT HE HAS NO OTHER RECREATION . HE IS STAYING MOSTLY SEDENTARY, AT HOME, SAY IS THAT HE CAN NOT WALK MUCH BECAUSE OF HIS CHRONIC BACK PAIN. HE DOES PARTICIPATE IN ANNUAL LUNG SCREENING PROGRAM. [facility] Medical History Nicotine dependence, cigarettes, uncomplicated Back pain Marijuana smoker High cholesterol GERD (gastroesophageal reflux disease) Pre-diabetes Hypertension Bronchial asthma ALESSIA (obstructive sleep apnea) Morbid exogenous obesity Surgical History Hx of hemorrhoidectomy Hx of tooth extraction Hx of thumb surgery Hx of tonsillectomy History of back surgery Family History Mother Cancer Father Diabetes Social History Are you a primary personal carer to a significant other at home: No Do you presently have visiting nurse or other home services: No Patient Tobacco Use Status: Current everyday Tobacco user Tobacco use type: Cigarette Cigarette Packs Per Day: 1.5 Cigarettes Per Day: 30.0 Years Smoked: 49 Review of Systems Const All systems reviewed & are unremarkable except as noted in HPI and below Eyes Reports no additional complaints ENT Reports no additional complaints Card Denies chest pain, Denies irregular heart rhythm and Denies leg edema Resp Reports as per HPI GI Reports no additional complaints Reports no additional complaints Musc Reports back pain and Reports arthralgias (Niece mostly) Skin/Breast Reports system reviewed and no additional complaints, except as documented Neuro Reports no additional complaints Psych Reports no additional complaints Physical Exam Vital Signs: Last Vital Signs Pulse 61 06/28/23 10:28 BP 120/72 06/28/23 10:28 Pulse Ox 97 06/28/23 10:28 Oxygen Delivery Method Room Air 06/28/23 10:28 Const Other: Grossly overweight with round face. General: comfortable, no acute distress, alert and awake Orientation/consciousness: patient oriented x3 HEENT Head: Yes normal to inspection General nose exam: No nasal polyps present and No nasal discharge present Face and sinus: Yes sinuses nontender Mouth: oropharynx abnormals (Very crowded and narrow, Mallampati class 4) Throat: Yes posterior oropharynx normal Eyes General: appearance normal, both eyes and all related structures Neck Neck: Yes normal visual inspection, Yes no lymphadenopathy, Yes trachea midline, Yes no JVD and Yes other (Neck is very obese) Thyroid: Thyroid normal Chest Chest palpation & inspection: normal inspection of the chest, normal palpation of entire chest wall and no tenderness Resp Other: Percussion note not perceptible because of thick chest wall. Breath sounds are diminished ( especially over the basilar areas ) but equal on both sides. He does have a few scattered expiratory wheezes over the lower lobes. Cardio Palpation: normal PMI Rate: regular rate Rhythm: regular rhythm Heart sounds: no gallops and no murmurs GI Palpation (GI): Soft to palpation, nontender, No hepatosplenomegaly present, no masses and Other GI palpation findings present (Abdomen is obese and protuberant) Auscultation: normal bowel sounds Back/Spine/Pelvis Thoracic/Lumbar Spine: thoracic and lumbar spine normal to inspection, thoraco- lumbar ROM limited and thoraco-lumbar spasm Skin General skin exam: no rashes or lesions noted Neuro General: patient oriented x3 and no focal motor deficits Cranial nerves: Yes CN's II-XII intact bilaterally Extrem General: Yes normal to inspection, Yes no clubbing, cyanosis or edema and Yes no calf tenderness Psych Appearance: grossly normal and well kempt Speech and movement: Normal speech and movement present Results Reviewed Results Reviewed: Compliance report for the last 30 nights is reviewed. He has used 30/30 nights. Average use it per night is 3 hours 34 minutes. He is on CPAP of 20 cm. There is not much air leak. Residual AHI 2.8 Assessment & Plan Assessment & Plan (1) Morbid exogenous obesity: Comment: Patient trying to watch his diet, but cannot exercise much. He remains morbidly obese . Does not want to join any weight management program. Code(s): E66.01 - Morbid (severe) obesity due to excess calories Plan: Again had a lengthy discussion with him about need to lose weight. He will try to do it on his own. (2) ALESSIA (obstructive sleep apnea): Comment: HE DOES HAVE SEVERE OBSTRUCTIVE SLEEP APNEA. CURRENTLY USING PRESSURE OF 20 CM WITH A FULLFACE MASK. HE CLAIMS TO BE USING IT EVERY NIGHT AND FOR THE WHOLE NIGHT. HE CLAIMS THAT HE CAN NOT SLEEP WITHOUT THE CPAP. HE IS DEFINITELY BENEFITING FROM THE USE OF CPAP. HE INSISTS ON SAYING THAT HE IS USING THE CPAP WHOLE NIGHT, EVEN THOUGH HIS COMPLIANCE REPORT SHOWS THAT HE IS USING FOR LESS THAN 4 HOURS PER NIGHT . HE WANTS TO GET A REPLACEMENT UNIT, I WILL SEND A SCRIPT TO HIS DME PROVIDER. Code(s): G47.33 - Obstructive sleep apnea (adult) (pediatric) Plan: ADVISED TO CONTINUE USING THE CPAP EVERY NIGHT. WE WILL LOOK INTO IF HE IS ELIGIBLE TO HAVE A REPLACEMENT CPAP MACHINE. (3) Bronchial asthma: Comment: BRONCHIAL ASTHMA IS VERY MILD AND INTERMITTENT, SPIROMETRY LAST YEAR =NORMAL MILD COUGH RELATED MOSTLY TO SMOKING. Code(s): J45.909 - Unspecified asthma, uncomplicated Plan: CONTINUE TO USE ALBUTEROL HFA 2 PUFFS Q 6 HOURS P.R.N.. A COMPLETE PULMONARY FUNCTION TEST IS ORDERED, AND THEN WILL DECIDE IF HE NEEDS ANY ADDITIONAL THERAPY (4) Nicotine dependence, cigarettes, uncomplicated: Comment: CONTINUES TO SMOKE, 1 AND HALF PACK A DAY, HE CLAIMS THAT HE HAS CUT DOWN FROM 2 PACKS TO 1.5 PACK. DOES NOT HAVE ANY WILL POWER ON INTENTION TO QUIT SMOKING COMPLETELY. Code(s): F17.210 - Nicotine dependence, cigarettes, uncomplicated Plan: AGAIN EDUCATED ABOUT THE RISK AND SIDE EFFECTS FROM CONTINUED SMOKING. ,HE UNDERSTANDS WELL LUCKILY HE DOES PARTICIPATE IN ANNUAL LUNG. SCREENING PROGRAM Orders: Orders PFT pulmonary function test Today E66.01 - Morbid (severe) obesity due to excess calories, F17.210 - Nicotine dependence, cigarettes, uncomplicated, G47.33 - Obstructive sleep apnea (adult) (pediatric), J45.909 - Unspecified asthma, uncomplicated Coding Level of Care Code Est Pt Level 3 (71140) Diagnoses Morbid exogenous obesity E66.01 ALESSIA (obstructive sleep apnea) G47.33 Bronchial asthma J45.909 Nicotine dependence, cigarettes, uncomplicated F17.210
[2023-06-28 10:28] VITALS: BP 120/72; PULSE 61; O2SAT 97
== END 2023-06-28 10:56 | disposition home or self-care (01) ==
PROVIDERS: PCP Internal Medicine; Visit Provider Internal Medicine
DX: E66.01 Morbid (severe) obesity due to excess calories (principal); G47.33 Obstructive sleep apnea (adult) (pediatric); J45.909 Unspecified asthma, uncomplicated; F17.210 Nicotine dependence, cigarettes, uncomplicated
CPT/HCPCS: 99213

== ENCOUNTER → 2023-06-28 10:26 | Outpatient (BNVA) | payer MEDICARE, MEDICAID, SELFPAY | PROVIDERS: PCP Internal Medicine; Visit Provider Internal Medicine | DX: G47.33 Obstructive sleep apnea (adult) (pediatric) (principal); J45.909 Unspecified asthma, uncomplicated; E66.01 Morbid (severe) obesity due to excess calories; F17.210 Nicotine dependence, cigarettes, uncomplicated | CPT/HCPCS: 99212 ==

== ENCOUNTER 2023-07-13 10:58 | Outpatient (REF) | payer MEDICARE, SELFPAY ==
[2023-07-13 09:35] VITALS: PULSE 70; RESP 16; O2SAT 96
--- NOTE | 2023-07-13 11:42 | PFT_ITS ---
Flows: FEV1: 93 % of predicted at 3.04 L FVC: 95 % of predicted at 4.03 L FEV1/FVC: 75 % Bronchodilator response: Absent Volumes: No lung volume measurements performed secondary to a technical issue. Diffusion capacity: Normal Impression: No obstructive ventilatory defect. No bronchodilator response. MTDD
== END 2023-07-13 10:59 | disposition home or self-care (01) ==
LOC: HO.RESP 10:58
PROVIDERS: PCP Internal Medicine; Visit Provider Internal Medicine
DX: E66.01 Morbid (severe) obesity due to excess calories (principal); J45.909 Unspecified asthma, uncomplicated; G47.33 Obstructive sleep apnea (adult) (pediatric); F17.210 Nicotine dependence, cigarettes, uncomplicated
CPT/HCPCS: 94010; 94640; 94727; 94729

== ENCOUNTER → 2023-07-13 11:42 | Outpatient (BNV) | payer MEDICARE, SELFPAY | PROVIDERS: PCP Internal Medicine; Visit Provider Internal Medicine Pulmonary Disease | DX: J45.909 Unspecified asthma, uncomplicated (principal) | CPT/HCPCS: 94060; 94729 ==

== ENCOUNTER 2023-08-15 10:17 | Outpatient (AMB) | payer MEDICARE, MEDICAID, SELFPAY ==
[2023-08-15 10:28] VITALS: BP 124/80; PULSE 55; O2SAT 98; BMI 47.9
--- NOTE | 2023-08-15 10:28 | MHC.OFFVIS ---
Intake Vital Signs 08/15/23 10:28 Height 5 ft 9 in Weight 324 lb 1.272 oz BMI 47.9 BP 124/80 Blood Pressure Location Lt brachial Position Sitting Pulse 55 Pulse Source Pulse Oximeter Pulse Oximetry (%) 98 Oxygen Delivery Method Room Air Intake Visit Reasons: alessia Intake Note: pt is here for follow up and states he is here for follow up of pft. Allergies tramadol [TRAMADOL] Allergy (Intermediate, Verified 08/15/23 11:04) UPSET STOMACH, GI Upset hydromorphone [Dilaudid] Allergy (Unknown, Verified 08/15/23 11:04) unknown Medication List - Last Reconciled 08/15/23 by Quoc Smith MD albuterol sulfate 90 mcg/actuation 2 puffs inhalation DAILY atenolol-chlorthalidone 50-25 mg 1 tab PO DAILY gabapentin 400 mg PO BEDTIME ibuprofen 800 mg PO Q8H PRN lidocaine 5% 1 patch topical DAILY metformin ER 500 mg PO DAILY omeprazole 20 mg PO DAILY oxycodone 15 mg PO TID PRN potassium chloride ER (Klor-Con M) 20 mEq PO DAILY Do you need a note to return to daycare/school/sports/work: No HPI alessia HPI Details This 62 years old gentleman is here for follow-up. Continues to smoke 1 and half pack of cigarettes a day. He claims that he just can not stop smoking, it has become a stillborn habit. He has not tried nicotine products mainly because he can not afford. He can not walk fast due to his obesity and back pain, and even at a slow pace he can hardly walk for more than 1 block. So he is staying mostly in the house, sedentary. He is not able to lose weight. He does use the CPAP very regularly every night and sleeps well. [facility] Medical History Nicotine dependence, cigarettes, uncomplicated Back pain Marijuana smoker High cholesterol GERD (gastroesophageal reflux disease) Pre-diabetes Hypertension Bronchial asthma ALESSIA (obstructive sleep apnea) Morbid exogenous obesity Surgical History Hx of hemorrhoidectomy Hx of tooth extraction Hx of thumb surgery Hx of tonsillectomy History of back surgery Family History Mother Cancer Father Diabetes Social History Are you a primary associate director career services to a significant other at home: No Do you presently have visiting nurse or other home services: No Patient Tobacco Use Status: Current everyday Tobacco user Tobacco use type: Cigarette Cigarette Packs Per Day: 1.5 Cigarettes Per Day: 30.0 Years Smoked: 49 Review of Systems Const All systems reviewed & are unremarkable except as noted in HPI and below Eyes Reports no additional complaints ENT Reports no additional complaints Card Denies chest pain, Denies irregular heart rhythm and Denies leg edema Resp Reports as per HPI GI Reports no additional complaints Reports no additional complaints Musc Reports back pain and Reports arthralgias (Niece mostly) Skin/Breast Reports system reviewed and no additional complaints, except as documented Neuro Reports no additional complaints Psych Reports no additional complaints Physical Exam Vital Signs: Last Vital Signs Pulse 55 08/15/23 10:28 BP 124/80 08/15/23 10:28 Pulse Ox 98 08/15/23 10:28 Oxygen Delivery Method Room Air 08/15/23 10:28 BMI result Body Mass Index 47.9 Const Other: Grossly overweight with round face. General: comfortable, no acute distress, alert and awake Orientation/consciousness: patient oriented x3 HEENT Head: Yes normal to inspection General nose exam: No nasal polyps present and No nasal discharge present Face and sinus: Yes sinuses nontender Mouth: oropharynx abnormals (Very crowded and narrow, Mallampati class 4) Throat: Yes posterior oropharynx normal Eyes General: appearance normal, both eyes and all related structures Neck Neck: Yes normal visual inspection, Yes no lymphadenopathy, Yes trachea midline, Yes no JVD and Yes other (Neck is very obese) Thyroid: Thyroid normal Chest Chest palpation & inspection: normal inspection of the chest, normal palpation of entire chest wall and no tenderness Resp Other: Percussion note not perceptible because of thick chest wall. Breath sounds are diminished ( especially over the basilar areas ) but equal on both sides. He does have a few scattered expiratory wheezes over the lower lobes. Cardio Palpation: normal PMI Rate: regular rate Rhythm: regular rhythm Heart sounds: no gallops and no murmurs GI Palpation (GI): Soft to palpation, nontender, No hepatosplenomegaly present, no masses and Other GI palpation findings present (Abdomen is obese and protuberant) Auscultation: normal bowel sounds Back/Spine/Pelvis Thoracic/Lumbar Spine: thoracic and lumbar spine normal to inspection, thoraco-lumbar ROM limited and thoraco-lumbar spasm Skin General skin exam: no rashes or lesions noted Neuro General: patient oriented x3 and no focal motor deficits Cranial nerves: Yes CN's II-XII intact bilaterally Extrem General: Yes normal to inspection, Yes no clubbing, cyanosis or edema and Yes no calf tenderness Psych Appearance: grossly normal and well kempt Speech and movement: Normal speech and movement present Results Reviewed Results Reviewed: Pulmonary function test is essentially normal no evidence of obstructive or restrictive disorder. Compliance report for the last 30 nights is reviewed. He has used 29/30 nights, 97% Average use per night 8 hours 15 minutes. He does have moderate amount of air leak. Residual AHI only 3.7 Assessment & Plan Assessment & Plan (1) Morbid exogenous obesity: Comment: Patient trying to watch his diet, but cannot exercise much. He remains morbidly obese . Does not want to join any weight management program. Code(s): E66.01 - Morbid (severe) obesity due to excess calories Plan: Once again counseled about his diet, and to lose weight. (2) ALESSIA (obstructive sleep apnea): Comment: HE DOES HAVE SEVERE OBSTRUCTIVE SLEEP APNEA. CURRENTLY USING PRESSURE OF 20 CM WITH A FULLFACE MASK. HE CLAIMS TO BE USING IT EVERY NIGHT AND FOR THE WHOLE NIGHT. HE CLAIMS THAT HE CAN NOT SLEEP WITHOUT THE CPAP. HE IS DEFINITELY BENEFITING FROM THE USE OF CPAP. COMPLIANCE REPORT IS REVIEWED AND IS EXCELLENT, Code(s): G47.33 - Obstructive sleep apnea (adult) (pediatric) Plan: COMMENDED FOR GOOD USAGE OF THE CPAP. AND ENCOURAGED TO CONTINUE USING IT REGULARLY. (3) Bronchial asthma: Comment: BRONCHIAL ASTHMA IS VERY MILD AND INTERMITTENT, PULMONARY FUNCTION TEST IS BASICALLY NORMAL Code(s): J45.909 - Unspecified asthma, uncomplicated Plan: ALBUTEROL HFA 2 PUFFS Q 6 HOURS ONLY P.R.N. (4) Nicotine dependence, cigarettes, uncomplicated: Comment: CONTINUES TO SMOKE, 1 AND HALF PACK A DAY, HE CLAIMS THAT HE HAS CUT DOWN FROM 2 PACKS TO 1.5 PACK. DOES NOT HAVE ANY WILL POWER ON INTENTION TO QUIT SMOKING COMPLETELY. Code(s): F17.210 - Nicotine dependence, cigarettes, uncomplicated Plan: DISCUSSED IN GREAT DETAIL ABOUT THE RISKS OF ONGOING SMOKING. HE HAS AGREED TO USE NICOTINE LOZENGES, AND I WILL PRESCRIBED. Medications: New nicotine (polacrilex) 4 mg buccal Q6H PRN 108 ea 3RF nicotine cravings 30 days Coding Level of Care Code Est Pt Level 3 (01992) Diagnoses Morbid exogenous obesity E66.01 ALESSIA (obstructive sleep apnea) G47.33 Bronchial asthma J45.909 Nicotine dependence, cigarettes, uncomplicated F17.210
== END 2023-08-15 11:05 | disposition home or self-care (01) ==
PROVIDERS: PCP Internal Medicine; Visit Provider Internal Medicine
DX: E66.01 Morbid (severe) obesity due to excess calories (principal); G47.33 Obstructive sleep apnea (adult) (pediatric); J45.909 Unspecified asthma, uncomplicated; F17.210 Nicotine dependence, cigarettes, uncomplicated
CPT/HCPCS: 99213

== ENCOUNTER → 2023-08-15 10:17 | Outpatient (BNVA) | payer MEDICARE, MEDICAID, SELFPAY | PROVIDERS: PCP Internal Medicine; Visit Provider Internal Medicine | DX: J45.909 Unspecified asthma, uncomplicated (principal); G47.33 Obstructive sleep apnea (adult) (pediatric); E66.01 Morbid (severe) obesity due to excess calories; F17.210 Nicotine dependence, cigarettes, uncomplicated; Z68.42 Body mass index [BMI] 45.0-49.9, adult; Z79.891 Long term (current) use of opiate analgesic | CPT/HCPCS: 99212 ==

== ENCOUNTER 2023-09-20 09:35 | Outpatient (REF) | payer MEDICARE, MEDICAID, SELFPAY ==
--- NOTE | ~2023-09-20 | CT_ITS ---
EXAMINATION: CT LUNG SCREENING CLINICAL INFORMATION: Nicotine dependence, cigarettes, uncomplicated. The patient is a current smoker with a 50 pack-year history of smoking. COMPARISON: CT chest 09/10/2022. X-ray chest 07/25/2009. TECHNIQUE: Multidetector volumetric CT imaging of the chest is performed on a Siemens SOMATOM Perspective scanner without contrast using low dose technique. Additional 2D coronal and sagittal reformatted images and axial 3D maximum intensity projection (MIP) images are generated on the CT workstation. This CT examination was performed using dose optimization techniques as appropriate, variously including the following: *Automated exposure control *Adjustment of mA and/or kV according to patient size (this includes techniques or standardized protocols for targeted exams where dose is matched to indication/reason for exam; i.e. extremities or head) *Use of iterative reconstruction technique TOTAL EXAM DLP: 222 mGy-cm. CTDIvol: 5.33 mGy. FINDINGS: PULMONARY NODULES: A few scattered tiny micronodules are seen, none larger than 3 mm (sanches images of all have been saved). The largest nodule is in the right upper lobe measuring 3 mm in size, and is unchanged (5:184 compare prior 6:207). No new, increasing sized or concerning pulmonary nodules are seen. LUNGS: Lungs bilaterally symmetrically expanded. Mild emphysematous changes are present. Moderate bronchial wall thickening is seen. There is some minimal traction bronchiectasis seen at the lung bases. No effusion or pneumothorax. Central airways patent. MEDIASTINUM: No mediastinal, hilar or axillary adenopathy or free fluid collection. CORONARY ARTERY CALCIFICATION: Marked. THYROID GLAND: Unremarkable to the extent seen. CARDIOVASCULAR STRUCTURES: Aortic and heart size normal. No pericardial effusion. CHEST WALL/AXILLA: Unremarkable. UPPER ABDOMEN: There is hepatic steatosis but otherwise included portions of the solid organs in the upper abdomen unremarkable on noncontrast imaging. OSSEOUS STRUCTURES: Degenerative changes are present in the spine, most marked at T7-T8. No bony destructive lesions. CT/CT lung screening IMPRESSION: No finding seen worrisome for malignancy. Some small unchanged benign micronodules are present. ASSESSMENT: 1. Lung-RADS Category 2: Benign appearance or behavior of nodules. N/A 2. Lung-RADS Category S: Negative. There are no clinically significant or potentially clinically significant findings not related to the lungs requiring urgent additional evaluation. RECOMMENDATION: Continued routine annual low-dose CT lung screening in 1 year is recommended. An order for CT CHEST LOW DOSE CANCER SCREENING ([id number]) can be placed.
== END 2023-09-20 09:36 | disposition home or self-care (01) ==
LOC: HO.CT 09:35
PROVIDERS: PCP Internal Medicine; Visit Provider Nurse Practitioner Family
DX: Z12.2 Encounter for screening for malignant neoplasm of respiratory organs (principal); F17.210 Nicotine dependence, cigarettes, uncomplicated
CPT/HCPCS: 71271

== ENCOUNTER 2023-09-23 09:24 | Outpatient (AMB) | payer MEDICARE, MEDICAID, SELFPAY ==
--- NOTE | 2023-09-23 09:45 | HO.SPINEOV ---
Intake Visit Reasons: low back pain with sciatica Intake Note: Mr. Thayer is here today c/o low back pain Bottler Helper Required: No Allergies tramadol [TRAMADOL] Allergy (Intermediate, Verified 09/23/23 09:46) UPSET STOMACH, GI Upset hydromorphone [Dilaudid] Allergy (Unknown, Verified 09/23/23 09:46) unknown Assessment & Plan Assessment & Plan (1) Failed back syndrome of lumbar spine: Code(s): M96.1 - Postlaminectomy syndrome, not elsewhere classified Category: Medical (2) Status post lumbar spinal arthrodesis: Code(s): Z98.1 - Arthrodesis status Category: Medical Plan Dear colleague Thank you for referring Amadeo Thayer to the office today with a chief complaint of axial low back pain and left leg pain. HPI: This 62-year-old male presents with debilitating central back pain that can radiate to his left leg. The pain started after a work-related injury many years ago. He underwent a fusion surgery L4-[address] Merritt. He had [address] Hu. Comes today stating that he continues to have back pain that radiates to the posterior thigh. He denies weakness or numbness. He has been taking opioids to treat the pain. The following conservative treatment options were tried without success antiinflammatories, tylenol, physician guided home exercise plan, cortisone shots PMH: Hypertension, diabetes, chronic opioid use Medications: Oxycodone 15 mg, metformin, lidocaine patches, omeprazole, atenolol, albuterol Allergies: Tramadol Social history: Smokes 1 pack a day. Physical Exam: Pleasant male in obvious agony. He stands in a flexed position and deviates towards the right side. On inspection of the lumbar spine there is a well healed midline scar. Straight leg raise produces pain in the left hip. Hip tests are negative. SI joint provocative tests are negative. No motor or neurological deficits. Radiological Studies: MRI done at [place] on 05/06/2023 show status post L4-5 fusion. More interestingly, there is severe left L4 foraminal stenosis caused by a T2 hypointense substance. In addition, there is mild right L4 foraminal stenosis. The remainder of the lumbar spine is unremarkable. Impression/Plan: This patient is suffering from chronic back pain radiating to his posterior left thigh that started after work-related injury many years ago. An initial surgery provided good relief but subsequent surgeries due to failure of hardware never helped. MRI shows significant abnormality around the left L4 nerve root. I would like to obtain a CT of the lumbar spine to see if the hypointense substance represents bone. I will see the patient back after the CT scan is done. Thank you for allowing me to participate in your patients care. total time spent was 45minutes in counseling ,coordination of plan, personal review of imaging, surgical decision making and subsequent plan Joel Avalos MD, PhD Spine Fellowship Trained Neurosurgeon Director, [facility] Orders: Orders CT lumbar spine wo IV con Today M96.1 - Postlaminectomy syndrome, not elsewhere classified, Z98.1 - Arthrodesis status Coding Level of Care Code New Pt Level 4 (24186) Diagnoses Failed back syndrome of lumbar spine M96.1 Status post lumbar spinal arthrodesis Z98.1
== END 2023-09-23 09:54 | disposition home or self-care (01) ==
PROVIDERS: PCP Internal Medicine; Referring Provider Internal Medicine; Visit Provider Neurological Surgery
DX: M96.1 Postlaminectomy syndrome, not elsewhere classified (principal); Z98.1 Arthrodesis status
CPT/HCPCS: 99204; 99214

== ENCOUNTER → 2023-09-23 09:24 | Outpatient (BNVA) | payer MEDICARE, SELFPAY | PROVIDERS: PCP Internal Medicine; Visit Provider Neurological Surgery | DX: M96.1 Postlaminectomy syndrome, not elsewhere classified (principal); Z98.1 Arthrodesis status | CPT/HCPCS: 99202 ==

== ENCOUNTER 2023-11-11 08:19 | Outpatient (REF) | payer MEDICARE, SELFPAY ==
--- NOTE | ~2023-11-11 | CT_ITS ---
EXAMINATION: CT LUMBAR SPINE WITHOUT CONTRAST CLINICAL INFORMATION: Postlaminectomy syndrome COMPARISON: MRI lumbar spine on 02/07/2010 TECHNIQUE: Multiple 2 and 1.5 mm axial images of the lumbar spine were obtained from lower T12 to S1 levels without IV contrast enhancement. Bone window and soft tissue window images were reconstructed. Coronal and Sagittal bone window images were also reconstructed from the axial image data. This CT examination was performed using dose optimization techniques as appropriate, variously including the following: *Automated exposure control *Adjustment of mA and/or kV according to patient size (this includes techniques or standardized protocols for targeted exams where dose is matched to indication/reason for exam; i.e. extremities or head) *Use of iterative reconstruction technique DLP; 1734 mGy-cm FINDINGS: The visualized lumbar vertebrae are intact with normal alignment. T12/L1: Bony structures are intact with normal alignment. Intervertebral disc height is normal. Bilateral neuroforamina are patent. Bilateral apophyseal joints are intact with normal alignment. L-1/L-2: Bony structures are intact with normal alignment. Intervertebral disc height is normal. Bilateral neuroforamina are patent. Bilateral apophyseal joints are intact with normal alignment. L2/L3: Bony structures are intact with normal alignment. Intervertebral disc height is normal. Bilateral neuroforamina are patent. Bilateral apophyseal joints are intact with normal alignment. Bilateral apophyseal joints show loss of joint space, sclerosis, facet hypertrophy and osteophytosis. L3/L4: Bony structures are intact with normal alignment. Intervertebral disc height is normal. Bilateral neuroforamina are patent. Bilateral apophyseal joints are intact with normal alignment. Bilateral apophyseal joints show loss of joint space, sclerosis, facet hypertrophy and osteophytosis. L4/L5: L4-L5 spinal fusion with metallic cage containing bone graft is seen. There is, however, no bony union. Extensive erosions are seen at left L4-L5 vertebral endplates, invading into left lower L4 vertebral body. Large sharp anterior and smaller posterior syndesmophytes are present. Bilateral neuroforamina are patent. Bilateral apophyseal joints are intact with normal alignment. Bilateral apophyseal joints show loss of joint space, sclerosis, facet hypertrophy and osteophytosis. L5/S1: Bony structures are intact with normal alignment. Intervertebral disc height is normal. Bilateral neuroforamina are patent. Bilateral apophyseal joints are intact with normal alignment. Bilateral apophyseal joints show loss of joint space, sclerosis, facet hypertrophy and osteophytosis. CT/CT lumbar spine wo IV con IMPRESSION: 1. Interval performance of L4-L5 spinal fusion with metallic cage containing bone graft is seen. There is, however, no bony union. Extensive erosions are seen at left L4-L5 vertebral endplates, invading into left lower L4 vertebral body. Large sharp anterior and smaller posterior syndesmophytes are present. 2. 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
== END 2023-11-11 08:20 | disposition home or self-care (01) ==
LOC: HO.CT 08:19
PROVIDERS: PCP Internal Medicine; Visit Provider Neurological Surgery
DX: M96.1 Postlaminectomy syndrome, not elsewhere classified (principal); Z98.1 Arthrodesis status
CPT/HCPCS: 72132

== ENCOUNTER 2023-12-09 09:51 | Outpatient (AMB) | payer MEDICARE, MEDICAID, SELFPAY ==
--- NOTE | 2023-12-09 09:54 | A.SPINEOV_ITS ---
Intake Visit Reasons: CT follow up Intake Note: Mr. Thayer is here today to discuss results of his CT Scan. Slip Mixer Required: No Allergies tramadol [TRAMADOL] Allergy (Intermediate, Verified 09/23/23 09:46) UPSET STOMACH, GI Upset hydromorphone [Dilaudid] Allergy (Unknown, Verified 09/23/23 09:46) unknown Assessment & Plan Assessment & Plan (1) Pseudoarthrosis of lumbar spine: Code(s): S32.009K - Unspecified fracture of unspecified lumbar vertebra, subsequent encounter for fracture with nonunion Category: Medical (2) Status post lumbar spinal arthrodesis: Code(s): Z98.1 - Arthrodesis status Category: Medical Plan On 12/09/2023, I saw for follow-up Jose. This 63-year-old male suffering from intractable low back pain that he treats with 3 oxycodone a day. He had a previous L4-5 fusion done in 2 subsequent surgeries in that area. I obtained a CT of the lumbar spine that shows a non fusion of the L4-5 segment. I told the patient that I can offer him another attempt to fuse the L4-5 segment, which may help with his intractable low back pain. On the other hand, I made him aware that this would be a 4th surgery and we know from experienced that with every spine surgery the chances of success are decreased. He is going to talk to his primary care physician about pain management if he decides to go ahead with the revision surgery. He will let me know what he wants to do. Spent 25 minutes in his consult to review imaging and to discuss plan of care. Joel Avalos MD, PhD Spine Fellowship Trained Neurosurgeon Director, [facility] Coding Level of Care Code Est Pt Level 2 (11408) Diagnoses Pseudoarthrosis of lumbar spine S32.009K Status post lumbar spinal arthrodesis Z98.1
== END 2023-12-09 10:15 | disposition home or self-care (01) ==
PROVIDERS: PCP Internal Medicine; Visit Provider Neurological Surgery
DX: S32.009K Unspecified fracture of unspecified lumbar vertebra, subsequent encounter for fracture with nonunion (principal); Z98.1 Arthrodesis status
CPT/HCPCS: 99212

== ENCOUNTER → 2023-12-09 09:51 | Outpatient (BNVA) | payer MEDICARE, SELFPAY | PROVIDERS: PCP Internal Medicine; Visit Provider Neurological Surgery | DX: S32.009K Unspecified fracture of unspecified lumbar vertebra, subsequent encounter for fracture with nonunion (principal); M96.0 Pseudarthrosis after fusion or arthrodesis; Z98.1 Arthrodesis status | CPT/HCPCS: 99212 ==

== ENCOUNTER 2023-12-20 09:52 | Outpatient (AMB) | payer MEDICARE, MEDICAID, SELFPAY ==
--- NOTE | 2023-12-20 10:04 | A.OFFVIS_ITS ---
Vital Signs 12/20/23 10:05 Height 5 ft 9 in Weight 328 lb 7.82 oz BMI 48.5 BP 122/70 Blood Pressure Location Lt brachial Position Sitting Pulse 61 Pulse Source Pulse Oximeter Pulse Oximetry (%) 97 Oxygen Delivery Method Room Air Intake Visit Reasons: Obstructive sleep apnea Intake Note: pt is here for follow up of BONNIE, and using cpap everynight. Home Lighting Adviser Required: No Allergies tramadol [TRAMADOL] Allergy (Intermediate, Verified 12/20/23 10:16) UPSET STOMACH, GI Upset hydromorphone [Dilaudid] Allergy (Unknown, Verified 12/20/23 10:16) unknown Medication List - Last Reconciled 12/20/23 by Quoc Smith MD albuterol sulfate 90 mcg/actuation 2 puffs inhalation DAILY atenolol-chlorthalidone 50-25 mg 1 tab PO DAILY gabapentin 400 mg PO BEDTIME ibuprofen 800 mg PO Q8H PRN lidocaine 5% 1 patch topical DAILY metformin ER 500 mg PO DAILY nicotine (polacrilex) 4 mg buccal Q6H PRN 30 days omeprazole 20 mg PO DAILY oxycodone 15 mg PO TID PRN potassium chloride ER (Klor-Con M) 20 mEq PO DAILY Do you need a note to return to daycare/school/sports/work: No HPI HPI Obstructive sleep apnea: Details: 63 years old gentleman with morbid obesity and obstructive sleep apnea, comes for his routine follow-up after 6 months. He uses CPAP very regularly every night because without using CPAP he just can not go to sleep. Sleeps well, denies any daytime sleepiness. As far as CPAP machine is concerned it is working fine. As far as weight is concerned he has not been able to lose any weight. His works with a surgeon who specializes in weight management, she has tried to an list him in weight management program but he has declined. He is also smoker about 1 and half pack of cigarettes a day. He say is without smoking he would not relax. So he is not motivated to stop smoking. He does get annual low-dose lung CT , which is so for benign PFSH Medical History Nicotine dependence, cigarettes, uncomplicated Back pain Marijuana smoker High cholesterol GERD (gastroesophageal reflux disease) Pre-diabetes Hypertension Bronchial asthma BONNIE (obstructive sleep apnea) Morbid exogenous obesity Surgical History Hx of hemorrhoidectomy Hx of tooth extraction Hx of thumb surgery Hx of tonsillectomy History of back surgery Family History Mother Cancer Father Diabetes Social History Are you a primary career technical education instructor to a significant other at home: No Do you presently have visiting nurse or other home services: No Patient Tobacco Use Status: Current everyday Tobacco user Tobacco use type: Cigarette Cigarette Packs Per Day: 1.5 Cigarettes Per Day: 30.0 Years Smoked: 49 Review of Systems Const All systems reviewed & are unremarkable except as noted in HPI and below Eyes Reports no additional complaints ENT Reports no additional complaints Card Denies chest pain, Denies irregular heart rhythm and Denies leg edema Resp Reports as per HPI GI Reports no additional complaints Reports no additional complaints Musc Reports back pain and Reports arthralgias (Niece mostly) Skin/Breast Reports system reviewed and no additional complaints, except as documented Neuro Reports no additional complaints Psych Reports no additional complaints Physical Exam Vital Signs: Last Vital Signs Pulse 61 12/20/23 10:05 BP 122/70 12/20/23 10:05 Pulse Ox 97 12/20/23 10:05 Oxygen Delivery Method Room Air 12/20/23 10:05 BMI result Body Mass Index 48.5 Const Other: Grossly overweight with round face. General: comfortable, no acute distress, alert and awake Orientation/consciousness: patient oriented x3 HEENT Head: Yes normal to inspection General nose exam: No nasal polyps present and No nasal discharge present Face and sinus: Yes sinuses nontender Mouth: oropharynx abnormals (Very crowded and narrow, Mallampati class 4) Throat: Yes posterior oropharynx normal Eyes General: appearance normal, both eyes and all related structures Neck Neck: Yes normal visual inspection, Yes no lymphadenopathy, Yes trachea midline, Yes no JVD and Yes other (Neck is very obese) Thyroid: Thyroid normal Chest Chest palpation & inspection: normal inspection of the chest, normal palpation of entire chest wall and no tenderness Resp Other: Percussion note not perceptible because of thick chest wall. Breath sounds are diminished ( especially over the basilar areas ) but equal on both sides. He does have a few scattered expiratory wheezes over the lower lobes. Cardio Palpation: normal PMI Rate: regular rate Rhythm: regular rhythm Heart sounds: no gallops and no murmurs GI Palpation (GI): Soft to palpation, nontender, No hepatosplenomegaly present, no masses and Other GI palpation findings present (Abdomen is obese and protuberant) Auscultation: normal bowel sounds Back/Spine/Pelvis Thoracic/Lumbar Spine: thoracic and lumbar spine normal to inspection, thoraco- lumbar ROM limited and thoraco-lumbar spasm Skin General skin exam: no rashes or lesions noted Neuro General: patient oriented x3 and no focal motor deficits Cranial nerves: Yes CN's II-XII intact bilaterally Extrem General: Yes normal to inspection, Yes no clubbing, cyanosis or edema and Yes no calf tenderness Psych Appearance: grossly normal and well kempt Speech and movement: Normal speech and movement present Results Reviewed Results Reviewed: Compliance report for the last 30 nights is reviewed and he has used 29/30 nights, 97%. Average usage is recorded as 3 hours. However according to his statement he uses more than 6 hours every night. There is no air leakage and the residual AHI 1.0 Assessment & Plan Assessment & Plan (1) Morbid exogenous obesity: Comment: Patient trying to watch his diet, but cannot exercise much. He remains morbidly obese . Does not want to join any weight management program. Code(s): E66.01 - Morbid (severe) obesity due to excess calories Category: Medical Plan: Again discussed about weight management. He has no motivation to lose any weight. And does not want to join weight management program (2) BONNIE (obstructive sleep apnea): Comment: HE DOES HAVE SEVERE OBSTRUCTIVE SLEEP APNEA. CURRENTLY USING PRESSURE OF 20 CM WITH A FULLFACE MASK. HE CLAIMS TO BE USING IT EVERY NIGHT AND FOR THE WHOLE NIGHT. HE CLAIMS THAT HE CAN NOT SLEEP WITHOUT THE CPAP. HE IS DEFINITELY BENEFITING FROM THE USE OF CPAP. COMPLIANCE REPORT IS REVIEWED AND IS EXCELLENT, Code(s): G47.33 - Obstructive sleep apnea (adult) (pediatric) Category: Medical Plan: Commended for good compliance. His the CPAP device is not recording the usage correctly. He will be due for a new CPAP device early next year (3) Bronchial asthma: Comment: BRONCHIAL ASTHMA IS VERY MILD AND INTERMITTENT, PULMONARY FUNCTION TEST IS BASICALLY NORMAL Code(s): J45.909 - Unspecified asthma, uncomplicated Category: Medical Plan: Keep albuterol on hand and use 1 or 2 puffs Q 6 hours only p.r.n. (4) Nicotine dependence, cigarettes, uncomplicated: Comment: CONTINUES TO SMOKE, 1 AND HALF PACK A DAY, HE CLAIMS THAT HE HAS CUT DOWN FROM 2 PACKS TO 1.5 PACK. DOES NOT HAVE ANY WILL POWER OR INTENTION TO QUIT SMOKING COMPLETELY. Code(s): F17.210 - Nicotine dependence, cigarettes, uncomplicated Category: Medical Plan: ADVISED TO CONTINUE ANNUAL LUNG SCREENING PROGRAM . Coding Level of Care Code Est Pt Level 3 (39266) Diagnoses Morbid exogenous obesity E66.01 BONNIE (obstructive sleep apnea) G47.33 Bronchial asthma J45.909 Nicotine dependence, cigarettes, uncomplicated F17.210
[2023-12-20 10:05] VITALS: BP 122/70; PULSE 61; O2SAT 97; BMI 48.5
== END 2023-12-20 10:27 | disposition home or self-care (01) ==
PROVIDERS: PCP Internal Medicine; Visit Provider Internal Medicine
DX: E66.01 Morbid (severe) obesity due to excess calories (principal); G47.33 Obstructive sleep apnea (adult) (pediatric); J45.909 Unspecified asthma, uncomplicated; F17.210 Nicotine dependence, cigarettes, uncomplicated
CPT/HCPCS: 99213

== ENCOUNTER → 2023-12-20 09:52 | Outpatient (BNVA) | payer MEDICARE, MEDICAID, SELFPAY | PROVIDERS: PCP Internal Medicine; Visit Provider Internal Medicine | DX: J45.909 Unspecified asthma, uncomplicated (principal); E66.01 Morbid (severe) obesity due to excess calories; G47.33 Obstructive sleep apnea (adult) (pediatric); F17.210 Nicotine dependence, cigarettes, uncomplicated | CPT/HCPCS: 99212 ==

== ENCOUNTER 2024-06-28 09:49 | Outpatient (AMB) | payer MEDICARE, MEDICAID, SELFPAY ==
[2024-06-28 10:04] VITALS: BP 130/82; PULSE 64; O2SAT 95; BMI 47.2
--- NOTE | 2024-06-28 10:04 | MHC.OFFVIS ---
Vital Signs 06/28/24 10:04 Height 5 ft 9 in Weight 319 lb 10.724 oz BMI 47.2 BP 130/82 Blood Pressure Location Lt brachial Position Sitting Pulse 64 Pulse Source Pulse Oximeter Pulse Oximetry (%) 95 Oxygen Delivery Method Room Air Intake Visit Reasons: Obstructive sleep apnea Intake Note: pt is here for follow up and has a new cpap needs help with settings. Statistical Reporting Analyst Required: No Allergies tramadol [TRAMADOL] Allergy (Intermediate, Verified 06/28/24 10:19) UPSET STOMACH, GI Upset hydromorphone [Dilaudid] Allergy (Unknown, Verified 06/28/24 10:19) unknown Medication List - Last Reconciled 06/28/24 by Quoc Smith MD albuterol sulfate 90 mcg/actuation 2 puffs inhalation DAILY atenolol-chlorthalidone 50-25 mg 1 tab PO DAILY gabapentin 400 mg PO BEDTIME ibuprofen 800 mg PO Q8H PRN lidocaine 5% 1 patch topical DAILY metformin ER 500 mg PO DAILY nicotine (polacrilex) 4 mg buccal Q6H PRN 30 days omeprazole 20 mg PO DAILY oxycodone 15 mg PO TID PRN potassium chloride ER (Klor-Con M) 20 mEq PO DAILY semaglutide (Ozempic) 0.25 mg subcut QWEEK Do you need a note to return to daycare/school/sports/work: No HPI HPI Obstructive sleep apnea: Details: THIS 63 YEARS OLD GENTLEMAN WITH MORBID OBESITY AND SEVERE OBSTRUCTIVE SLEEP APNEA IS HERE FOR FOLLOW-UP AFTER HE GOT HIS NEW CPAP MACHINE. THE NEW CPAP DEVICE IS SET FOR CPAP OF 20 CM, BUT WITH A RAMP MODE STARTING FROM 4 CM UPWARDS IN ABOUT 20 MINUTES TO HIS MAXIMUM CPAP OF 20 CM. HE HAS DIFFICULTY WITH THE NEW MACHINE BECAUSE HE DOES NOT GET ENOUGH PRESSURE AT THE START. SOMETIMES HE HAS TO GO BACK TO HIS OLD CPAP DEVICE. TO SLEEP FOR REST OF THE NIGHT HE IS LOSING WEIGHT SLOWLY . CLAIMS THAT BREATHING IS OKAY AND HE USES ALBUTEROL ONLY NEEDED. STILL SMOKING 1 AND HALF PACK OF CIGARETTES A DAY. [facility] Medical History Nicotine dependence, cigarettes, uncomplicated Back pain Marijuana smoker High cholesterol GERD (gastroesophageal reflux disease) Pre-diabetes Hypertension Bronchial asthma BONNIE (obstructive sleep apnea) Morbid exogenous obesity Surgical History Hx of hemorrhoidectomy Hx of tooth extraction Hx of thumb surgery Hx of tonsillectomy History of back surgery Family History Mother Cancer Father Diabetes Social History Are you a primary youth care professional to a significant other at home: No Do you presently have visiting nurse or other home services: No Patient Tobacco Use Status: Current everyday Tobacco user Tobacco use type: Cigarette Cigarette Packs Per Day: 1.5 Cigarettes Per Day: 30.0 Years Smoked: 49 Review of Systems Const All systems reviewed & are unremarkable except as noted in HPI and below Eyes Reports no additional complaints ENT Reports no additional complaints Card Denies chest pain, Denies irregular heart rhythm and Denies leg edema Resp Reports as per HPI GI Reports no additional complaints Reports no additional complaints Musc Reports back pain and Reports arthralgias (Niece mostly) Skin/Breast Reports system reviewed and no additional complaints, except as documented Neuro Reports no additional complaints Psych Reports no additional complaints Physical Exam Vital Signs: Last Vital Signs Pulse 64 06/28/24 10:04 BP 130/82 06/28/24 10:04 Pulse Ox 95 06/28/24 10:04 Oxygen Delivery Method Room Air 06/28/24 10:04 BMI result Body Mass Index 47.2 Const Other: Grossly overweight with round face. General: comfortable, no acute distress, alert and awake Orientation/consciousness: patient oriented x3 HEENT Head: Yes normal to inspection General nose exam: No nasal polyps present and No nasal discharge present Face and sinus: Yes sinuses nontender Mouth: oropharynx abnormals (Very crowded and narrow, Mallampati class 4) Throat: Yes posterior oropharynx normal Eyes General: appearance normal, both eyes and all related structures Neck Neck: Yes normal visual inspection, Yes no lymphadenopathy, Yes trachea midline, Yes no JVD and Yes other (Neck is very obese) Thyroid: Thyroid normal Chest Chest palpation & inspection: normal inspection of the chest, normal palpation of entire chest wall and no tenderness Resp Other: Percussion note not perceptible because of thick chest wall. Breath sounds are diminished ( especially over the basilar areas ) but equal on both sides. He does have a few scattered expiratory wheezes over the lower lobes. Cardio Palpation: normal PMI Rate: regular rate Rhythm: regular rhythm Heart sounds: no gallops and no murmurs GI Palpation (GI): Soft to palpation, nontender, No hepatosplenomegaly present, no masses and Other GI palpation findings present (Abdomen is obese and protuberant) Auscultation: normal bowel sounds Back/Spine/Pelvis Thoracic/Lumbar Spine: thoracic and lumbar spine normal to inspection, thoraco-lumbar ROM limited and thoraco-lumbar spasm Skin General skin exam: no rashes or lesions noted Neuro General: patient oriented x3 and no focal motor deficits Cranial nerves: Yes CN's II-XII intact bilaterally Extrem General: Yes normal to inspection, Yes no clubbing, cyanosis or edema and Yes no calf tenderness Psych Appearance: grossly normal and well kempt Speech and movement: Normal speech and movement present Results Reviewed Results Reviewed: COMPLIANCE REPORT FOR THE LAST 30 NIGHTS IS REVIEWED AND THOUGH HE USES EVERY NIGHT 30/30 NIGHTS,, 100% HIS AVERAGE USE IT PER NIGHT IS 1 HOUR 22 MINUTES WHICH IS VERY SUBOPTIMAL. HE HAS EXPLAINED THAT BECAUSE HE HAS DIFFICULTY HE WITH RAMP MODE HE SOMETIMES SWITCH IS TO HIS OLD CPAP DEVICE, THUS HE DOES NOT USE THIS NEW MACHINE FOR ENOUGH HOURS. Assessment & Plan Assessment & Plan (1) Morbid exogenous obesity: Comment: Patient trying to watch his diet, but cannot exercise much. He remains morbidly obese . Does not want to join any weight management program. He is trying to cut down on his calories intake and lately he has lost about 10 lb of weight. Code(s): E66.01 - Morbid (severe) obesity due to excess calories Category: Medical Plan: Again encouraged to keep on watching his diet and try to walk 1 or 2 miles every day. (2) BONNIE (obstructive sleep apnea): Comment: HE DOES HAVE SEVERE OBSTRUCTIVE SLEEP APNEA. CURRENTLY USING PRESSURE OF 20 CM WITH A FULLFACE MASK. HE IS HAVING ISSUE WITH THE RAMP MODE, AND SOMETIME HE HAS TO TAKE THE NEW MACHINE OFF AND GO BACK TO THE OLD CPAP DEVICE. SO EVEN THOUGH HE USES IT EVERY NIGHT HIS AVERAGE USE IT PER NIGHT REMAINS VERY LOW. Code(s): G47.33 - Obstructive sleep apnea (adult) (pediatric) Category: Medical Plan: WE HAVE ELIMINATED THE RAMP MODE. CONTINUE PRESSURE OF 20 CM WITH FULLFACE MASK. AND HE IS ADVISED TO USE THE NEW CPAP EVERY NIGHT (3) Bronchial asthma: Comment: BRONCHIAL ASTHMA IS VERY MILD AND INTERMITTENT, PULMONARY FUNCTION TEST IS BASICALLY NORMAL Code(s): J45.909 - Unspecified asthma, uncomplicated Category: Medical Plan: USE ALBUTEROL HFA 2 PUFFS Q 6 HOURS P.R.N. (4) Nicotine dependence, cigarettes, uncomplicated: Comment: CONTINUES TO SMOKE, 1 AND HALF PACK A DAY, HE CLAIMS THAT HE HAS CUT DOWN FROM 2 PACKS TO 1.5 PACK. DOES NOT HAVE ANY WILL POWER OR MOTIVATION TO QUIT SMOKING COMPLETELY. Code(s): F17.210 - Nicotine dependence, cigarettes, uncomplicated Category: Medical Plan: ADVISED TO AT LEAST CUT DOWN THE NUMBER OF CIGARETTES GRADUALLY . Coding Level of Care Code Est Pt Level 3 (54156) Diagnoses Morbid exogenous obesity E66.01 BONNIE (obstructive sleep apnea) G47.33 Bronchial asthma J45.909 Nicotine dependence, cigarettes, uncomplicated F17.210
--- OUTSIDE RECORDS SUMMARY | 2024-06-28 10:20 | XMS_ITS | Patient Health Record ---
Author Organization [facility] Address [address] [place] [address] Care Team Providers Care Bread Racker Name Role Phone Selvin Kelly MD Primary Care Provider Unavaila Tl Stoddard Unavailable [phone] Reason For Referral No Information Encounters Encounter Location Date Provider Diagnosis [facility] [address] [place] [address] 03/20/2024 Tl Sanchez Plan Of Treatment No Information Insurance Providers Payer Name Payer Address Payer Phone Subscriber Number Group Number Insured Name Patient Relationship to Insured Coverage Start Date Coverage End Date Medicare National Govt [facility] [address] [place] [address] [id number] Amadeo Jaime Self - patient is the insured AARP Secondary to Medicare [address] [place] [address] [id number] Amadeo Jaime Self - patient is the insured
--- OUTSIDE RECORDS SUMMARY | 2024-06-28 10:21 | XMS_ITS ---
Author Organization [facility] Address [address] [place] [address] Care Team Providers Care Audio Visual Technician Name Role Phone Robin BARRERA, Selvin Primary Care Provider Unavaila Tl Stoddard Unavailable [phone] Encounters Encounter Location Date Provider Diagnosis [facility] [address] [place] [address] 04/03/2024 Tl Sanchez Plan Of Treatment No Information Progress Notes * Zohaib THAYEROB: [birth year] (63 yo M)Acc No.[id number]:04/03/2024 Progress Notes Patient:?Amadeo THAYER Provider:?Tl Sanchez DPM :1960???Age:63 Y???Sex:Male Eugene e:04/03/2024 Address: [address] [place] Pcp:Selvin Kelly MD Subjective: * Chief Complaints: * ??? * Medical History:? Objective: * Vitals:? Assessment: Plan: * Treatment: * Images: * The named appointment provid er may or may not be the originator of this progress note, and it is not deemed complete until electronically signed by the appointment provider. Sign off status: Pending * Provider:?Tl Sanchez DPM Date:?2023 Generated for Wilda mtz/Toni/eTransmitting on:?06/28/2024 10:20 AM EST
--- OUTSIDE RECORDS SUMMARY | 2024-06-28 10:21 | XMS_ITS ---
Author Organization [facility] Address [address] [place] [address] Care Team Providers Care Harness Cutter Name Role Phone Selvin Kelly MD Primary Care Provider Unavaila Tl Stoddard Unavailable [phone] REASON FOR VISIT cx DEAF AND HARD OF HEARING TEACHER 04/03 Encounters Encounter Location Date Provider Diagnosis [facility] [address] [place] [address] 03/20/2024 Tl Sanchez Plan Of Treatment No Information Progress Notes * Zohaib THAYEROB: [birth year] (63 yo M)Acc No.[id number]:03/20/2024 Patient:?Amadeo Thayer :1960???Age:63 Y???Sex:Male Address:[address] [place], [address] * true * Date:? Generated for Shoshanai bibi/Toni/eTransmitting on:?06/28/2024 10:20 AM EST
== END 2024-06-28 10:21 | disposition home or self-care (01) ==
PROVIDERS: PCP Internal Medicine; Visit Provider Internal Medicine
DX: E66.01 Morbid (severe) obesity due to excess calories (principal); G47.33 Obstructive sleep apnea (adult) (pediatric); J45.909 Unspecified asthma, uncomplicated; F17.210 Nicotine dependence, cigarettes, uncomplicated
CPT/HCPCS: 99213

== ENCOUNTER → 2024-06-28 09:49 | Outpatient (BNVA) | payer MEDICARE, MEDICAID, SELFPAY | PROVIDERS: PCP Internal Medicine; Visit Provider Internal Medicine | DX: G47.33 Obstructive sleep apnea (adult) (pediatric) (principal); J45.909 Unspecified asthma, uncomplicated; E66.01 Morbid (severe) obesity due to excess calories; F17.210 Nicotine dependence, cigarettes, uncomplicated; Z68.42 Body mass index [BMI] 45.0-49.9, adult | CPT/HCPCS: 99212 ==

== ENCOUNTER 2024-08-23 10:36 | Outpatient (REF) | payer MEDICARE, MEDICAID, SELFPAY ==
--- NOTE | ~2024-08-23 | MR_ITS ---
EXAMINATION: MR BRAIN WITHOUT CONTRAST CLINICAL INFORMATION: Chronic right-sided headaches; 63-year-old male. COMPARISON: None available. TECHNIQUE: MRI of the brain was obtained using routine sequences without contrast. Examination performed on a 1.5 Linnea Siemens high-field unit. FINDINGS: There is no diffusion restriction. There is no intracranial hemorrhage, acute infarction, mass effect, or edema. Ventricles, sulci, and cisterns are normal in size and configuration for patient age. No shift of midline. No abnormal hemosiderin deposition is identified. There are a few scattered punctate foci of white matter T2 hyperintensity in the periventricular, subcortical, and hemispheric deep white matter. These are nonspecific, but statistically most likely sequela of small vessel ischemia. Midline structures appear normally formed. The pituitary gland appears normal. Posterior fossa structures appear normal. Cerebellar tonsils are appropriately located. Major flow voids are preserved within the skull base. The globes and orbital contents demonstrate no abnormalities. Paranasal sinuses demonstrate mild polypoid mucosal thickening in the dependent right maxillary sinus. Minimal mucosal thickening seen throughout the ethmoid sinuses. There is a right mastoid effusion which extends into the right tympanic cavity. The left mastoid and middle ear cavity in signal. Extracranial soft tissues demonstrate no abnormalities. No suspicious bone marrow changes are evident. Atlantoaxial joint is normal. MR/MR head/brain wo con IMPRESSION: 1. No intracranial hemorrhage, acute infarction, mass effect, or edema. 2. Minimal small vessel ischemic changes. 3. Right mastoid effusion extending into the right tympanic cavity. Electronically signed by: Andres Holt MD 08/23/2024 11:52 AM EDT
--- OUTSIDE RECORDS SUMMARY | 2024-08-23 12:33 | XMS_ITS ---
Author Organization [facility] Address [address] [place] [address] Care Team Providers Care Polisher And Sander Name Role Phone Robin BARRERA, Selvin Primary Care Provider Unavaila Tl Stoddard Unavailable [phone] Encounters Encounter Location Date Provider Diagnosis [facility] [address] [place] [address] 04/03/2024 Tl Sanchez Plan Of Treatment No Information Progress Notes * Zohaib THAYEROB: [birth year] (63 yo M)Acc No.[id number]:04/03/2024 Progress Notes Patient:?Amadeo THAYER Provider:?Tl Sanchez DPM :1960???Age:63 Y???Sex:Male Eugene e:04/03/2024 Address: [address] [place] Pcp:Selvin Kelly MD Subjective: * Chief Complaints: [...] Sanchez DPM Date:?2023 Generated for Wilda mtz/Toni/eTransmitting on:?08/23/2024 12:33 PM EDT
--- OUTSIDE RECORDS SUMMARY | 2024-08-23 12:33 | XMS_ITS | Patient Health Record ---
Author Organization [facility] Address [address] [place] [address] Care Team Providers Care Mechanical Engineering Director Name Role Phone Selvin Kelly MD Primary Care Provider Unavaila Tl Stoddard Unavailable [phone] Reason For Referral No Information Encounters Encounter Location Date Provider Diagnosis [facility] [address] [place] [address] 03/20/2024 Tl Sanchez Plan Of Treatment No Information Insurance Providers Payer Name Payer Address Payer Phone Subscriber Number Group Number Insured Name Patient Relationship to Insured Coverage Start Date Coverage End Date Medicare National Govt [facility] [address] [place] [address] [id number] Amadeo Jaime Self - patient is the insured AARP Secondary to Medicare [address] [place] [address] [id number] Amadeo Jaime Self - patient is the insured
--- OUTSIDE RECORDS SUMMARY | 2024-08-23 12:33 | XMS_ITS ---
Author Organization [facility] Address [address] [place] [address] Care Team Providers Care Site Safety Representative Name Role Phone Selvin Kelly MD Primary Care Provider Unavaila Tl Stoddard [phone] REASON FOR VISIT cx SOFTWARE FIRMWARE ENGINEER 04/03 Encounters Encounter Location Date Provider Diagnosis [facility] [address] [place] [address] 03/20/2024 Tl Sanchez Plan Of Treatment No Information Progress Notes * Zohaib THAYEROB: [birth year] (63 yo M)Acc No.[id number]:03/20/2024 Patient:?Amadeo Thayer :1960???Age:63 Y???Sex:Male Address:[address] [place], [address] * true * Date:? Generated for Printi bibi/Toni/eTransmitting on:?08/23/2024 12:33 PM EDT
== END 2024-08-23 10:37 | disposition home or self-care (01) ==
LOC: HO.MRI 10:36
PROVIDERS: PCP Internal Medicine; Visit Provider Internal Medicine
DX: R51.9 Headache, unspecified (principal); G89.29 Other chronic pain
CPT/HCPCS: 70551

== ENCOUNTER → 2024-08-23 11:00 | Outpatient (BNV) | payer MEDICARE, MEDICAID, SELFPAY | PROVIDERS: PCP Internal Medicine; Visit Provider Radiology Diagnostic Radiology | DX: H74.8X1 Other specified disorders of right middle ear and mastoid (principal) | CPT/HCPCS: 70551 ==

== ENCOUNTER 2024-08-30 09:25 | Outpatient (AMB) | payer MEDICARE, MEDICAID, SELFPAY ==
[2024-08-30 09:27] VITALS: BP 122/70; PULSE 65; O2SAT 96; BMI 49.0
--- NOTE | 2024-08-30 09:27 | A.OFFVIS_ITS ---
Vital Signs 08/30/24 09:27 Height 5 ft 9 in Weight 331 lb 12.731 oz BMI 49.0 BP 122/70 Blood Pressure Location Lt brachial Position Sitting Pulse 65 Pulse Source Doppler Pulse Oximetry (%) 96 Oxygen Delivery Method Room Air Intake Visit Reasons: Obstructive sleep apnea Intake Note: Patient is here for a follow up on BONNIE, patient stated he has been using his CPAP machine. Allergies tramadol [TRAMADOL] Allergy (Intermediate, Verified 08/30/24 09:45) UPSET STOMACH, GI Upset hydromorphone [Dilaudid] Allergy (Unknown, Verified 08/30/24 09:45) unknown Medication List - Last Reconciled 08/30/24 by Quoc Smith MD albuterol sulfate 90 mcg/actuation 2 puffs inhalation DAILY atenolol-chlorthalidone 50-25 mg 1 tab PO DAILY gabapentin 400 mg PO BEDTIME ibuprofen 800 mg PO Q8H PRN lidocaine 5% 1 patch topical DAILY metformin ER 500 mg PO DAILY nicotine (polacrilex) 4 mg buccal Q6H PRN 30 days omeprazole 20 mg PO DAILY oxycodone 15 mg PO TID PRN potassium chloride ER (Klor-Con M) 20 mEq PO DAILY Do you need a note to return to daycare/school/sports/work: No HPI HPI Obstructive sleep apnea: Details: 63 YEARS OLD GENTLEMAN WITH SUPER MORBID OBESITY, HAPPY GOING, CASE OF SEVERE OBSTRUCTIVE SLEEP APNEA AND IS BEING TREATED WITH CPAP. SINCE JUNE OF THIS YEAR HE DID GET NEW CPAP. MACHINE WHICH IS WORKING GOOD USES HIS CPAP VERY REGULARLY UP TO 9 OR 10 HOURS EVERY NIGHT. INFECT HE IS NOT ABLE TO SLEEP AT ALL WITHOUT USING THE CPAP. HE STILL SMOKES, HAS MILD INTERMITTENT COUGH OR WHEEZE AND USES ALBUTEROL ONCE IN A WHILE. HE HAS BACK PAIN AND NOT ABLE TO DO MUCH WALKING. HE TRIES TO CONTROL HIS DIET, BUT HAS PUT ON MORE WEIGHT. HE DID WELL WHEN HE WAS ON OZEMPIC INJECTION, BUT NOW HE CAN NOT GET THIS MEDICINE DUE TO INSURANCE NON COVERAGE. [facility] Medical History Failed back syndrome of lumbar spine Hypertension High cholesterol Pre-diabetes Bronchial asthma BONNIE (obstructive sleep apnea) Nicotine dependence, cigarettes, uncomplicated Marijuana smoker GERD (gastroesophageal reflux disease) Tubular adenoma of colon Gastrointestinal multiple polyposis syndrome Morbid exogenous obesity Surgical History History of lumbar surgery History of colonoscopy History of hemorrhoidectomy History of thumb surgery History of tonsillectomy History of tooth extraction Family History Mother Cancer Father Diabetes Social History Are you a primary child care centre manager to a significant other at home: No Do you presently have visiting nurse or other home services: No Patient Tobacco Use Status: Current everyday Tobacco user Tobacco use type: Cigarette Cigarette Packs Per Day: 1.5 Cigarettes Per Day: 30.0 Years Smoked: 49 Review of Systems Const All systems reviewed & are unremarkable except as noted in HPI and below Eyes Reports no additional complaints ENT Reports no additional complaints Card Denies chest pain, Denies irregular heart rhythm and Denies leg edema Resp Reports as per HPI GI Reports no additional complaints Reports no additional complaints Musc Reports back pain and Reports arthralgias (Niece mostly) Skin/Breast Reports system reviewed and no additional complaints, except as documented Neuro Reports no additional complaints Psych Reports no additional complaints Physical Exam Vital Signs: Last Vital Signs Pulse 65 08/30/24 09:27 BP 122/70 08/30/24 09:27 Pulse Ox 96 08/30/24 09:27 Oxygen Delivery Method Room Air 08/30/24 09:27 BMI result Body Mass Index 49.0 Const Other: Grossly overweight with round face. General: comfortable, no acute distress, alert and awake Orientation/consciousness: patient oriented x3 HEENT Head: Yes normal to inspection General nose exam: No nasal polyps present and No nasal discharge present Face and sinus: Yes sinuses nontender Mouth: oropharynx abnormals (Very crowded and narrow, Mallampati class 4) Throat: Yes posterior oropharynx normal Eyes General: appearance normal, both eyes and all related structures Neck Neck: Yes normal visual inspection, Yes no lymphadenopathy, Yes trachea midline, Yes no JVD and Yes other (Neck is very obese) Thyroid: Thyroid normal Chest Chest palpation & inspection: normal inspection of the chest, normal palpation of entire chest wall and no tenderness Resp Other: Percussion note not perceptible because of thick chest wall. Breath sounds are diminished ( especially over the basilar areas ) but equal on both sides. He does have a few scattered expiratory wheezes over the lower lobes. Cardio Palpation: normal PMI Rate: regular rate Rhythm: regular rhythm Heart sounds: no gallops and no murmurs GI Palpation (GI): Soft to palpation, nontender, No hepatosplenomegaly present, no masses and Other GI palpation findings present (Abdomen is obese and protuberant) Auscultation: normal bowel sounds Back/Spine/Pelvis Thoracic/Lumbar Spine: thoracic and lumbar spine normal to inspection, thoraco- lumbar ROM limited and thoraco-lumbar spasm Skin General skin exam: no rashes or lesions noted Neuro General: patient oriented x3 and no focal motor deficits Cranial nerves: Yes CN's II-XII intact bilaterally Extrem General: Yes normal to inspection, Yes no clubbing, cyanosis or edema and Yes no calf tenderness Psych Appearance: grossly normal and well kempt Speech and movement: Normal speech and movement present Results Reviewed Results Reviewed: COMPLIANCE REPORT FOR THE LAST 30 NIGHTS REVIEWED. HE HAS USED 30/30 NIGHTS,. 100% AVERAGE USE IT PER NIGHT 9 HOURS 28 MINUTES. CPAP OF 20 CM. WITH A FULLFACE MASK. THERE IS SOME AIR LEAKAGE THE MASK SLIPS TO THE SIDE DURING NIGHT. THE RESIDUAL AHI 3.1 Assessment & Plan Assessment & Plan (1) Morbid exogenous obesity: Comment: Patient trying to watch his diet, but cannot exercise much. Does not want to join any weight management program. When he was on Ozempic therapy he had lost about 10-12 lb but he say is he can not get Ozempic due to insurance noncoverage. Code(s): E66.01 - Morbid (severe) obesity due to excess calories Category: Medical Plan: Discussed about diet and I told him to reduce the intake of carbohydrates as much as possible. Due to his chronic back problem( failed back surgery ) he can not do any walking or exercise. (2) BONNIE (obstructive sleep apnea): Comment: (Severe BONNIE - using pressure 20cm, full face mask . He is very compliant, and in fact without using the CPAP he just can not sleep. Code(s): G47.33 - Obstructive sleep apnea (adult) (pediatric) Category: Medical Plan: Commended for good compliance and continue to use the CPAP at present settings. (3) Bronchial asthma: Comment: (mild/intermittent - PFT essentially normal) Code(s): J45.909 - Unspecified asthma, uncomplicated Category: Medical Plan: Use albuterol 2 puffs Q 6 hours but only p.r.n. (4) Nicotine dependence, cigarettes, uncomplicated: Comment: (max 2ppd, now 1.5ppd) Code(s): F17.210 - Nicotine dependence, cigarettes, uncomplicated Category: Medical Plan: Discussed about quitting smoking. He is doing his best but not able to cut down the number of cigarettes any further. Advise that he should get annual lung scan with low-dose CT Coding Level of Care Code Est Pt Level 3 (58590) Diagnoses Morbid exogenous obesity E66.01 BONNIE (obstructive sleep apnea) G47.33 Bronchial asthma J45.909 Nicotine dependence, cigarettes, uncomplicated F17.210
--- OUTSIDE RECORDS SUMMARY | 2024-08-30 10:41 | XMS_ITS ---
Author Organization [facility] Address [address] [place] [address] Care Team Providers Care Mine Expert Name Role Phone Selvin Kelly MD Primary Care Provider Unavaila Tl Stoddard [phone] REASON FOR VISIT cx ORTHOPEDICS PEDIATRIC PHYSICIAN 04/03 Encounters Encounter Location Date Provider Diagnosis [facility] [address] [place] [address] 03/20/2024 Tl Sanchez Plan Of Treatment No Information Progress Notes * Zohaib THAYEROB: 961 (63 yo M)Acc No.[id number]:03/20/2024 Patient:?Amadeo Thayer :1960???Age:63 Y???Sex:Male Address:[address] [place], [address] * true * Date:? Generated for Printi bibi/Toni/eTransmitting on:?08/30/2024 10:41 AM EDT
--- OUTSIDE RECORDS SUMMARY | 2024-08-30 10:42 | XMS_ITS | Patient Health Record ---
Author Organization [facility] Address [address] [place] [address] Care Team Providers Care Slot Floor Person Name Role Phone Selvin Kelly MD Primary Care Provider Unavaila Tl Stoddard Unavailable [phone] Reason For Referral No Information Encounters Encounter Location Date Provider Diagnosis [facility] [address] [place] [address] 03/20/2024 Tl Sanchez Plan Of Treatment No Information Insurance Providers Payer Name Payer Address Payer Phone Subscriber Number Group Number Insured Name Patient Relationship to Insured Coverage Start Date Coverage End Date Medicare National Govt [facility] [address] [place] [address] [id number] Amadeo Jaime Self - patient is the insured AARP Secondary to Medicare [address] [place] [address] [id number] Amadeo Jaime Self - patient is the insured
--- OUTSIDE RECORDS SUMMARY | 2024-08-30 10:42 | XMS_ITS ---
[facility] Organization [facility] Address [address] [place] [address] Care Team Providers Care Proof Load Mechanic Name Role Phone Robin BARRERA, Selvin Primary Care Provider Unavaila Tl Stoddard Unavailable [phone] Encounters Encounter Location Date Provider Diagnosis [facility] [address] [place] [address] 04/03/2024 Tl Sanchez Plan Of Treatment No Information Progress Notes * Zohaib THAYEROB: [birth year] (63 yo M)Acc No.[id number]:04/03/2024 Progress Notes Patient:?Amadeo THAYER Provider:?Tl Sanchez DPM :1960???Age:63 Y???Sex:Male Eugene e:04/03/2024 Address[address] [id number] Pcp:Selvin Kelly MD Subjective: * Chief Complaints: [...] Sanchez DPM Date:?2023 Generated for Wilda mtz/Toni/eTransmitting on:?08/30/2024 10:41 AM EDT
== END 2024-08-30 09:53 | disposition home or self-care (01) ==
LOC: HO.HPS 09:26
PROVIDERS: PCP Internal Medicine; Visit Provider Internal Medicine
DX: E66.01 Morbid (severe) obesity due to excess calories (principal); G47.33 Obstructive sleep apnea (adult) (pediatric); J45.909 Unspecified asthma, uncomplicated; F17.210 Nicotine dependence, cigarettes, uncomplicated
CPT/HCPCS: 99213

== ENCOUNTER → 2024-08-30 09:25 | Outpatient (BNVA) | payer MEDICARE, MEDICAID, SELFPAY | PROVIDERS: PCP Internal Medicine; Visit Provider Internal Medicine | DX: G47.33 Obstructive sleep apnea (adult) (pediatric) (principal); E66.01 Morbid (severe) obesity due to excess calories; J45.909 Unspecified asthma, uncomplicated; F17.210 Nicotine dependence, cigarettes, uncomplicated; Z68.42 Body mass index [BMI] 45.0-49.9, adult | CPT/HCPCS: 99212 ==

== ENCOUNTER 2024-09-20 09:54 | Outpatient (REF) | payer MEDICARE, MEDICAID, SELFPAY ==
--- NOTE | ~2024-09-20 | CT_ITS ---
CLINICAL HISTORY: F17.210 - Nicotine dependence, cigarettes, uncomplicated CT lung cancer screening (LDCT) Comparison: CT/WA/SR - CT LUNG SCREENING - 09/20/23 09:[address]/REG/WA/SR - CT LUNG SCREENING - 09/10/22 08:36 EDT Technique: Axial CT images of the chest using low-dose technique. Referring provider counseled the patient on shared decision-making for LDCT screening. Additional counseling was provided on smoking cessation. Effective radiation dose total: DLP 115.7 mGycm, CTDIvol 3.1 mGy. Findings: Lung: Mild centrilobular and paraseptal emphysema. Stable 5.2 mm nodule of the right upper lobe series 4, image 68. Coronary artery calcifications: Severe Limited upper abdomen: Possible pill in the stomach. Other: None Impression: LungRADS 2 - Benign Appearance: Continue annual screening with low dose Chest CT in 12 months. ##L2# Category 1: Normal; continue annual screening Category 2: Benign appearance or behavior, continue annual screening Category 3: Probably benign, [address] recommended Category 4A: Suspicious, [address] recommended; may consider PET/CT Category 4B: Suspicious, Additional diagnostics and/or tissue sampling recommended Category 4X: Suspicious, Additional diagnostics and/or tissue sampling recommended Category 0: Recalls (incomplete screen due to Incomplete coverage, Noise, Respiratory motion, Expiration, Obscured by acute abnormality) This document has been electronically signed by: Ne Jansen MD on 09/20/2024 14:06:02
--- OUTSIDE RECORDS SUMMARY | 2024-09-20 10:47 | XMS_ITS ---
Author Organization [facility] Address [address] [place] [address] Care Team Providers Care Envelope Machine Adjuster Name Role Phone Robin BARRERA, Selvin Primary Care Provider Unavaila Tl Stoddard Unavailable [phone] Encounters Encounter Location Date Provider Diagnosis [facility] [address] [place] [address] 04/03/2024 Tl Sanchez Plan Of Treatment No Information Progress Notes * Zohaib THAYEROB: [birth year] (63 yo M)Acc No.[id number]:04/03/2024 Progress Notes Patient:?Amadeo THAYER Provider:?Tl Sanchez DPM :1960???Age:63 Y???Sex:Male Eugene e:04/03/2024 Address: [address] [id number] Pcp:Selvin Kelly MD Subjective: * Chief Complaints: [...] Sanchez DPM Date:?2023 Generated for Wilda mtz/Toni/eTransmitting on:?09/20/2024 10:47 AM EDT
--- OUTSIDE RECORDS SUMMARY | 2024-09-20 10:47 | XMS_ITS ---
Author Organization [facility] Address [address] [place] [address] Care Team Providers Care Dispatch Coordinator Name Role Phone Selvin Kelly MD Primary Care Provider Unavaila Tl Stoddard Unavailable [phone] REASON FOR VISIT cx [facility] 04/03 Encounters Encounter Location Date Provider Diagnosis [facility] [address] [place] [address] 03/20/2024 Tl Sanchez Plan Of Treatment No Information Progress Notes * Zohaib THAYEROB: [birth year] (63 yo M)Acc No.[id number]:03/20/2024 Patient:?Amadeo Thayer :1960???Age:63 Y???Sex:Male Address:[address] [place], [address] * true * Date:? Generated for Printi bibi/Toni/eTransmitting on:?09/20/2024 10:47 AM EDT
--- OUTSIDE RECORDS SUMMARY | 2024-09-20 10:47 | XMS_ITS | Patient Health Record ---
Author Organization [facility] Address [address] [place] [address] Care Team Providers Care Solar Installation Technician Name Role Phone Selvin Kelly MD Primary Care Provider Unavaila Tl Stoddard Unavailable [phone] Reason For Referral No Information Encounters Encounter Location Date Provider Diagnosis [facility] [address] [place] [address] 03/20/2024 Tl Sanchez Plan Of Treatment No Information Insurance Providers Payer Name Payer Address Payer Phone Subscriber Number Group Number Insured Name Patient Relationship to Insured Coverage Start Date Coverage End Date Medicare National Govt [facility] [address] [place] [address] [id number] Amadeo Jaime Self - patient is the insured AARP Secondary to Medicare [address] [place] [address] [phone] [id number] Amadeo Jaime Self - patient is the insured
== END 2024-09-20 09:55 | disposition home or self-care (01) ==
LOC: HO.CT 09:54
PROVIDERS: PCP Internal Medicine; Visit Provider Physician Assistant Medical
DX: Z12.2 Encounter for screening for malignant neoplasm of respiratory organs (principal); F17.210 Nicotine dependence, cigarettes, uncomplicated
CPT/HCPCS: 71271

== ENCOUNTER → 2024-09-20 09:56 | Outpatient (BNV) | payer MEDICARE, MEDICAID, SELFPAY | PROVIDERS: PCP Internal Medicine; Visit Provider Nuclear Medicine | DX: F17.210 Nicotine dependence, cigarettes, uncomplicated (principal) | CPT/HCPCS: 71271 ==

== ENCOUNTER 2025-03-04 09:26 | Outpatient (AMB) | payer MEDICARE, MEDICAID, SELFPAY ==
--- OUTSIDE RECORDS SUMMARY | 2024-04-03 05:30 | XMS_ITS ---
Author Organization [facility] Address [address] [place] [address] Care Team Providers Care Bill Board Poster Name Role Phone Robin BARRERA, Selvin Primary Care Provider UnavailTl Walls Unavailable [phone] Encounters Encounter Location Date Provider Diagnosis [facility] [address] [place] [address] 04/03/2024 Tl Sanchez Plan Of Treatment No Information Progress Notes * Zohaib THAYEROB: [birth year] (64 yo M)Acc No.[id number]:04/03/2024 Progress Notes Patient: Amadeo MILLAN Provider: Chhaya Sanchez DPM :1960 A ge:63 Y S ex:Male Date:04/03/2024 Address: [address] [facility] Pcp:Selvin Kelly MD Subjective: * Chief Complaints: [...] Date: 06/03/2023 Generated for Wilda mtz/Toni/Natanaelitting on: 10:33 AM EDT
--- NOTE | 2025-03-04 09:34 | A.OFFVIS_ITS ---
Vital Signs 03/04/25 09:35 Height 5 ft 9 in Weight 340 lb 9.827 oz BMI 50.3 BP 120/72 Blood Pressure Location Lt brachial Position Sitting Pulse 58 Pulse Source Pulse Oximeter Pulse Oximetry (%) 98 Oxygen Delivery Method Room Air Intake Visit Reasons: Obstructive sleep apnea Intake Note: pt is here for follow up and states he is using cpap everynight, and he is getting issues with the strap for his headgear. Talent Acquisition Assistant Required: No Allergies tramadol (TRAMADOL) Allergy (Intermediate, Verified 03/04/25 09:48) UPSET STOMACH, GI Upset hydromorphone (Dilaudid) Allergy (Unknown, Verified 03/04/25 09:48) unknown Medication List - Last Reconciled 03/04/25 by Quoc Smith MD albuterol sulfate 90 mcg/actuation 2 puffs inhalation DAILY atenolol-chlorthalidone 50-25 mg 1 tab PO DAILY gabapentin 400 mg PO BEDTIME ibuprofen 800 mg PO Q8H PRN lidocaine 5% 1 patch topical DAILY omeprazole 20 mg PO DAILY oxycodone 15 mg PO TID PRN potassium chloride ER (Klor-Con M) 20 mEq PO DAILY Do you need a note to return to daycare/school/sports/work: No HPI HPI Obstructive sleep apnea: Details: 64 years old gentleman who is morbidly obese, and has obstructive sleep apnea. Comes for his routine follow-up. He is an avid user of CPAP uses up to 10 hours every night and sleeps well. However he does have some discomfort from the straps, and has some air leak as well. In spite of that he gets good results from the use of CPAP. As far as weight is concerned he has not made any progress rather has gained a few lb of weight. He was on Ozempic injections but then it was not allowed by the insurance. He remains sedentary because due to back pain he can not walk much. He tries to control his diet, but it is not enough to make him lose weight. Continues to smoke 1 pack of cigarettes a day. Has intermittent bouts of cough and wheezing. Denies shortness of breath at rest but on walking around he does have moderate dyspnea. This is all related to his morbid obesity. [facility] Medical History Failed back syndrome of lumbar spine Hypertension High cholesterol Pre-diabetes Bronchial asthma BONNIE (obstructive sleep apnea) Nicotine dependence, cigarettes, uncomplicated Marijuana smoker GERD (gastroesophageal reflux disease) Tubular adenoma of colon Gastrointestinal multiple polyposis syndrome Morbid exogenous obesity Surgical History History of lumbar surgery History of colonoscopy History of hemorrhoidectomy History of thumb surgery History of tonsillectomy History of tooth extraction Family History Mother Cancer Father Diabetes Social History Are you a primary director long term care to a significant other at home: No Do you presently have visiting nurse or other home services: No Patient Tobacco Use Status: Current everyday Tobacco user Tobacco use type: Cigarette Cigarette Packs Per Day: 1.5 Cigarettes Per Day: 30.0 Years Smoked: 49 Review of Systems Const All systems reviewed & are unremarkable except as noted in HPI and below Eyes Reports no additional complaints ENT Reports no additional complaints Card Denies chest pain, Denies irregular heart rhythm and Denies leg edema Resp Reports as per HPI GI Reports no additional complaints Reports no additional complaints Musc Reports back pain and Reports arthralgias (Niece mostly) Skin/Breast Reports system reviewed and no additional complaints, except as documented Neuro Reports no additional complaints Psych Reports no additional complaints Physical Exam Vital Signs: Last Vital Signs Pulse 58 03/04/25 09:35 BP 120/72 03/04/25 09:35 Pulse Ox 98 03/04/25 09:35 Oxygen Delivery Method Room Air 03/04/25 09:35 BMI result Body Mass Index 50.3 Const Other: Grossly overweight with round face. General: comfortable, no acute distress, alert and awake Orientation/consciousness: patient oriented x3 HEENT Head: Yes normal to inspection General nose exam: No nasal polyps present and No nasal discharge present Face and sinus: Yes sinuses nontender Mouth: oropharynx abnormals (Very crowded and narrow, Mallampati class 4) Throat: Yes posterior oropharynx normal Eyes General: appearance normal, both eyes and all related structures Neck Neck: Yes normal visual inspection, Yes no lymphadenopathy, Yes trachea midline, Yes no JVD and Yes other (Neck is very obese) Thyroid: Thyroid normal Chest Chest palpation & inspection: normal inspection of the chest, normal palpation of entire chest wall and no tenderness Resp Other: Percussion note not perceptible because of thick chest wall. Breath sounds are diminished ( especially over the basilar areas ) but equal on both sides. He does have a few scattered expiratory wheezes over the lower lobes. Cardio Palpation: normal PMI Rate: regular rate Rhythm: regular rhythm Heart sounds: no gallops and no murmurs GI Palpation (GI): Soft to palpation, nontender, No hepatosplenomegaly present, no masses and Other GI palpation findings present (Abdomen is obese and protuberant) Auscultation: normal bowel sounds Back/Spine/Pelvis Thoracic/Lumbar Spine: thoracic and lumbar spine normal to inspection, thoraco- lumbar ROM limited and thoraco-lumbar spasm Skin General skin exam: no rashes or lesions noted Neuro General: patient oriented x3 and no focal motor deficits Cranial nerves: Yes CN's II-XII intact bilaterally Extrem General: Yes normal to inspection, Yes no clubbing, cyanosis or edema and Yes no calf tenderness Psych Appearance: grossly normal and well kempt Speech and movement: Normal speech and movement present Results Reviewed Results Reviewed: Compliance report is reviewed he used CPAP every night and up to 10 hours per night. There was some air leak. Residual AHI only 2.4 Assessment & Plan Assessment & Plan (1) Morbid exogenous obesity: Comment: Patient trying to watch his diet, but cannot exercise much. Does not want to join any weight management program. When he was on Ozempic therapy he had lost about 10-12 lb but he say is he can not get Ozempic due to insurance noncoverage. He also can not do much walking or any type of exercise due to his ongoing back pain. Code(s): E66.01 - Morbid (severe) obesity due to excess calories Category: Medical Plan: Talked to him about restricting the calories intake. Advise that he should consult with PCP to see if he can have an alternative anti obesity agent. (2) BONNIE (obstructive sleep apnea): Comment: (Severe BONNIE - using pressure 20cm, full face mask . He is very compliant, and in fact without using the CPAP he just can not sleep. Compliance is excellent. Code(s): G47.33 - Obstructive sleep apnea (adult) (pediatric) Category: Medical Plan: Commended for good compliance and advised to continue using the CPAP. Because there is some air leak he is advised to tighten the straps as much as tolerated. (3) Bronchial asthma: Comment: (mild/intermittent - PFT essentially normal) He uses albuterol only p.r.n. Code(s): J45.909 - Unspecified asthma, uncomplicated Category: Medical Plan: Albuterol HFA 2 puffs Q 6 hours p.r.n. for persistent cough or wheezing (4) Nicotine dependence, cigarettes, uncomplicated: Comment: (max 2ppd, now 1.5ppd). Code(s): F17.210 - Nicotine dependence, cigarettes, uncomplicated Category: Medical Plan: Counseled to quit smoking or at least try to cut down the cigarettes as much as possible. Continue to have annual LDCT. Coding Level of Care Code Est Pt Level 3 (15286) Diagnoses Morbid exogenous obesity E66.01 BONNIE (obstructive sleep apnea) G47.33 Bronchial asthma J45.909 Nicotine dependence, cigarettes, uncomplicated F17.210
[2025-03-04 09:35] VITALS: BP 120/72; PULSE 58; O2SAT 98; BMI 50.3
--- OUTSIDE RECORDS SUMMARY | 2025-03-04 10:33 | XMS_ITS | Encounter Summary ---
Author Organization [facility] Address [address] [place] [id number] Phone Care Team Providers Care Certified Nursing Attendant Name Role Phone Selvin Kelly MD Primary Care Provider [phone] Desi Bey MD Unavailable Hebert Panda MD Unavailable [phone] Selvin Kelly MD Unavailable [phone] Quoc Smith MD Unavailable Reason for Referral * Occupational Therapy (Routine) - Closed Specialty Diagnoses / Procedures Referred By Sunday garcia Referred To Contact Occupational Therapy Diagnoses Encounter for rehabilitation Sevlin Kelly MD Phone: tel: fax: [email or web address] [address] [place] [address] Phone: tel: Referral ID Status Reason Start Date Expiration Date Visits Re quested Visits Authorized [id number] Closed 10/15/2020 05/15/[phone] Encounter Details Date Type Department Care Team (Latest Contact Info) Description 10/15/2020 Transcribe Orders [facility] [address] [place] [address] Selvin Kelly MD [address] [place] [address] [phone] [email or web address] Encounter for rehabilitation (Primary Dx) Social History Tobacco Use Types Packs/Day Years Used Date Smoking Tobacco: Some Days Cigarettes 1.5 51.8 Started: 05/16/1973 Smokeless Tobacco: Never Alcohol Use Standard Drinks/Week Comments Yes 0 (1 standard drink = 0.6 oz pur e alcohol) 2-3 beers a month Sex and Gender Information Value Date Recorded Sex Assigned at Not on file Legal Sex Male 3:25 PM EST Gender Identity Not on file Sexual Orientation Not on file documented as of this encounter Plan of Treatment Upcoming Encounters Date Type Department Care Team (Late st Contact Info) Description 03/27/2025 11:30 AM EST Office Visit [facility] Internal Medicine [address] [place], [place] [phone] Selvin Kelly MD [address] [place], [place] [phone] Scheduled Referrals Name Type Priority Associated Diagnoses Orde r Schedule Ambulatory referral to [facility] Occupational Therapy Outpatient Referral Routine Encounter for rehabilitation Ordered: 10/15/2020 documented as of this encounter Visit Diagnoses Diagnosis Encounter for rehabilitation- Primary documented in this encounter Additional Health Concerns Infection Onset Date Last Indicated Resolved Time CoV-Risk 07/06/2024 07/06/2024 07/17/2024 1:23 AM EST Assessment Noted Time PHQ-9 Depression Total Score: 11 020 10:15 AM EST PHQ-2 Depression Total Score: 0 10/11/19 21 9:16 AM EDT documented as of this encounter Care Teams Certified Nursing Attendant Relationship Specialty Start Date End Date Selvin Kelly MD [address] [place] [address] PCP - General Internal Medicine 05/21/19 Desi Bey MD [address] [place] [address] [place] [address] Neurology 02/21/20 Hebert Panda MD [address] [place] [address] [email or web address] 02/22/20 Selvin Kelly MD [address] [place] [address] [email or web address] Insurance Assigned Provider 08/23/20 05/21/23 Quoc Smith MD [address] [place] [address] Drive [address] [place] [address] Pulmonary Disease 06/30/23 documented as of this encounter Additional Source Comments The information contained in this document represents components of the legal health record. It is not the complete legal health record.[facility]
--- OUTSIDE RECORDS SUMMARY | 2025-03-04 10:33 | XMS_ITS | Encounter Summary ---
Author Organization [facility] Address [address] [place] [address] Phone Care Team Providers Care Guest Advisor Name Role Phone Selvin Kelly MD Primary Care Provider [phone] Desi Bey MD Unavailable [phone] Hebert Panda MD Unavailable [phone] Quoc Smith MD Unavailable [phone] Reason for Visit * Reason Onset Date Comments Medication Refill 02/26/2025 CSRP Encounter Details Date Type Department Care Team (Late st Contact Info) Description 02/26/2025 Refill [facility] Internal Medicine [address] [place], [place] [phone] Selvin Kelly MD [address] [place], [place] [phone] [email or web address] Medication Refill (CSRP) Social History Tobacco Use Types Packs/Day Years Used Date Smoking Tobacco: Every Day Cigarettes 1.5 51.8 Started: 05/16/1973 Smokeless Tobacco: Never Comments:Smokes between 1 to 1.5 PPD-noted 11/01/23 1.5 PPD-noted 07/06/24 Alcohol Use Standard Drinks/Week Comments Yes 0 (1 standard drink = 0.6 oz pure alcohol) 2 cans of beer a month, if that. Education Answer Date Recorded Are you interested in more education? Not on roberto carlos e 09/10/2022 Are you concerned about learning? Not on file 09/10/2022 No 09/10/2022 No 09/10/2022 Digital Access Answer Date Recorded No 10/08/2022 No 10/08/2022 Reliable internet access at home? Not on file 10/08/2022 Device with a working camera? Not on file Intimate Partner Violence Answer Date R ecorded Denied Basic Needs Not on file 11/21/2024 In the past 12 months have y ou been in a relationship with a person who hurts, threatens, or tries to control you? No 11/21/2024 Worried food would run out Not on file 11/21 In the past 12 months have y ou been in a relationship with a person who hurts, threatens, or tries to control you? No 11/21/2024 Sex and Gender Information Value Date Recorded Sex Assigned at Not on file Legal Sex Male 3:25 PM EST Gender Identity Not on file Sexual Orientation Not on file documented as of this encounter Progress Notes * Matilde Sagastume MA - 02/26/2025 8:27 AM EDT Images from the original note were not included. CSRP Oxycodone 15mg Due: 4 days ago Received: 1 month ago Patient reminder [facility] Crowe C[facility] See Telephone encounter 01/25/25, to be filled on 02/01/25 Rx Care Gap Status - Instructions for Clinical Staff (prescriber discretion applies): > Mismatch review guide > Check PDMP for all controlled medication requests. Visit Info Last visit: 12/17/2024 [facility] > Requested f/u: Not specified Upcoming visit: 03/27/2025 Selvin Kelly MD - [facility] ACTIONS TAKEN BY Matilde Sagastume [place] - Checked PDMP/[place]. Opioid Rx Protocol - oxycodone HCl Controlled substance renewals are at prescriber discretion. Pain mgmt profile/toxicology (urine/saliva) may be considered annually or more frequently if indicated. In-person visit in past 2 years: Yes (Last in-person visit: 11/21/2024 (Selvin Kelly MD - [facility])) Visit in past 4 months: Yes No benzodiazepine on medication list Opioid agreement on file: Yes Pain management profile/toxicology in past 12 months: Yes documented in this encounter Plan of Treatment Upcoming Encounters Date Type Department Care Team (Late st Contact Info) Description 03/27/2025 11:30 AM EST Office Visit [facility] Internal Medicine [address] [place] [address] Selvin Kelly MD [address] [place] [address] [email or web address] documented as of this encounter Visit Diagnoses Diagnosis Acute right-sided low back pain without sciatica Chronic bilateral low back pain with sciatica, sciatica laterality unspecified documented in this encounter Additional Health Concerns Assessment Noted Time PHQ-9 Depression Total Score: 11 020 10:15 AM EST PHQ-2 Depression Total Score: 0 11/22/19 25 12:19 PM EDT documented as of this encounter Care Teams Guest Advisor Relationship Specialty Start Date End Date Selvin Kelly MD [address] [place] [address] [email or web address] PCP - General Internal Medicine 05/21/19 Desi Bey MD [address] [place] [address] [place] [address] Neurology 02/21/20 Hebert Panda MD [address] [place] [address] [place] [address] [email or web address] Surgery 02/22/20 Quoc Smith MD [address] [place] [address] Drive [address] [place] [address] Pulmonary Disease 06/30/23 documented as of this encounter Additional Source Comments The information contained in this document represents components of the legal health record. It is not the complete legal health record.[facility]
--- OUTSIDE RECORDS SUMMARY | 2025-03-04 10:33 | XMS_ITS | Patient Health Record ---
Author Organization [facility] Address [address] [place] [address] Care Team Providers Care Senior Ux Designer Name Role Phone Selvin Kelly MD Primary Care Provider Unavaila lT Stoddard Unavailable [phone] Reason For Referral No Information Encounters Encounter Location Date Provider Diagnosis [facility] [address] [place] [address] 03/20/2024 Tl Sanchez Plan Of Treatment No Information Insurance Providers Payer Name Payer Address Payer Phone Subscriber Number Group Number Insured Name Patient Relationship to Insured Coverage Start Date Coverage End Date Medicare National Govt [facility] [address] [place] [address] [id number] Amadeo Jaime Self - patient is the insured AARP Secondary to Medicare [address] [place] [address] [phone] [id number] Amadeo Jaime Self - patient is the insured
--- OUTSIDE RECORDS SUMMARY | 2025-03-04 10:33 | XMS_ITS | Clinical Summary ---
Author Organization [facility] Address [address] [place] [phone] Phone Care Team Providers Care Guest Services Agent Name Role Phone Selvin Kelly MD Primary Care Provider [phone] Desi Bey MD Unavailable Hebert Panda MD Unavailable [phone] Quoc Smith MD Unavailable [phone] Allergies Active Allergy Reactions Criticality Noted Date Comments Hydromorphone 05/21/2019 aggression Other Reaction(s): unknown Phentermine GI Upset 10/30/2021 constipation Tramadol Nausea and/or Vomiting,Other (See Comments) High 05/07/2019 nauseau and confusiopn and slurred speech Other Reaction(s): UPSET STOMACH, GI Upset Medications lidocaine (LIDODERM) 5 %Indications:Cervi calgia,Upper back pain APPLY ONE PATCH TO THE SKIN ONCE A DAY NEEDED FOR PAIN REMOVE AFTER 12 HOURS 30 patch 12/13/19 22 Active Additional Information Patient not taking.Reported on 11/21/2024 diclofenac sodium (VOLTAREN) 1 % GelIndications:Liz bennett osteoarthritis of both hands APPLY 2 GRAMS TO AFFECTED AREA 4 TIMES A DAY 400 g 1 07/02/19 23 Active VENTOLIN HFA 90 mcg/actuation inhalerIndications :Bronchospasm INHALE 2 PUFFS INTO THE LUNGS EVERY 6 HOURS NEEDED FOR WHEEZE 18 g 5 08/08/19 24 Active gabapentin (NEURONTIN) 100 MG capsuleIndications :Cervical radiculopathy TAKE 3 CAPSULES (300 MG TOTAL) BY MOUTH NIGHTLY AT BEDTIME. 90 capsule 2 08/08/19 24 Active lidocaine (LIDODERM) 5 %Indications:Cervi hao radiculopathy PLACE 1 PATCH ONTO THE SKIN DAILY. REMOVE & DISCARD PATCH WITHIN 12 HOURS OR DIRECTED BY 30 patch 11/11/19 24 Active atenolol-chlorthal idone (TENORETIC) 50-25 mg per tabletIndications: Benign essential hypertension TAKE 1 TABLET BY MOUTH EVERY DAY 90 tablet 3 04/04/20 24 Active KLOR-CON M20 20 mEq ER tablet TAKE 1 TABLET BY MOUTH TWICE A DAY 180 tablet 3 04/04/20 24 Active Additional Information Patient not taking.Reported on 11/21/2024 metFORMIN (GLUCOPHAGE-XR) 500 MG 24 hr tabletIndications: Prediabetes Take 1 tablet (500 mg total) by mouth daily with dinner. 90 tablet 3 04/06/20 24 Active Additional Information Patient not taking.Reported on 11/21/2024 arm brace (WRIST BRACE) MiscIndications:Ca rpal tunnel syndrome, bilateral Bilateral, 1 per wrist 2 each 1 06/26/19 25 Active fluticasone propionate (FLONASE) 50 mcg/actuation nasal sprayIndications:A llergic rhinitis, unspecified seasonality, unspecified trigger 2 sprays by Nasal route daily. 16 g 12 08/15/19 25 Active omeprazole (PRILOSEC) 40 MG capsuleIndications :Gastroesophageal reflux disease, unspecified whether esophagitis present TAKE 1 CAPSULE (40 MG TOTAL) BY MOUTH DAILY. 90 capsule 3 11/10/19 25 Active lidocaine (LIDODERM) 5 % PLACE 1 PATCH ONTO SKIN DAILY. REMOVE & DISCARD WITHIN 12 HOURS OR DIRECTED BY 30 patch 1 12/25/19 25 Active ibuprofen (ADVIL,MOTRIN) 800 MG tabletIndications: Cervicalgia,Upper back pain TAKE 1 TAB BY MOUTH EVERY 6 HOURS NEEDED FOR PAIN (SPECIFIC LOCATION IN COMMENTS) (WITH FOOD). 100 tablet 2 12/29/19 25 Active DULoxetine (CYMBALTA) 30 MG capsuleIndications :Chronic, continuous use of opioids,Chronic bilateral low back pain with sciatica, sciatica laterality unspecified TAKE 1 CAPSULE BY MOUTH EVERY DAY 90 capsule 3 01/22/20 25 Active oxyCODONE 15 MG immediate release tabletIndications: Acute right-sided low back pain without sciatica,Chronic bilateral low back pain with sciatica, sciatica laterality unspecified Take 1 tablet (15 mg total) by mouth every 8 (eight) hours as needed for pain (specific location in comments). Partial fill ok 84 tablet 03/01/20 25 025 Active oxyCODONE 15 MG immediate release tabletIndications: Acute right-sided low back pain without sciatica,Chronic bilateral low back pain with sciatica, sciatica laterality unspecified Take 1 tablet (15 mg total) by mouth every 8 (eight) hours as needed for pain (specific location in comments). Partial fill ok 84 tablet 02/02/20 025 Discontin ued(Reord er) Active Problems Problem Noted Date Diagnosed Date BONNIE (obstructive sleep apnea) 01/18/2024 Overview (01/18/2024): Follows with [facility] pul Dr. Alonzo Smith last ov 12/20/23 compliance good- Post laminectomy syndrome 01/02/2024 Overview (01/02/2024): Pt had CT w/o constast of his spine ordered by Dr. Caleb Avalos, [facility] interval performance of L4-L5 spinal fusion containing bone graft is seen. No bone union noted. + erosions seen Left L4-L5, advanced joint OA at L2-L3, and L5-S1 Prediabetes 06/10/2021 Assessment & Plan (12/24/2021 9:01 AM EDT): Hemoglobin A1c decreased from 6.3 to 5.7% he still in the prediabetic range but this is a very good change. He should continue metformin and monitoring his diet for weight loss. Since I am managing his other conditions any longer I suggested to the patient that he just follow with his primary care physician. I did put in a prescription for metformin but he should get this refilled by his PCP from now on. Assessment & Plan (09/09/2021 9:31 AM EDT): Despite metformin addition his hemoglobin A1c increased to 6.3%. I encouraged him to drink plenty of water so he feels full and to eat foods like cheese in the evening or celery instead of the crackers. Repeat the hemoglobin A1c in 3 months. Assessment & Plan (06/10/2021 9:30 AM EST): The patient has hemoglobin A1c of 6.1% with microalbuminuria. I will prescribe Metformin extended release of course he will also work on losing weight decreasing carbohydrate intake and exercise. I did discuss with him the possibility of seeing a supervisor carbon paper coating/dietitian to work counselor him on the type of foods he should eat but he is not ready for this yet. Hypertriglyceridemia 06/10/2021 Assessment & Plan (12/24/2021 8:56 AM EDT): He informs me me that he does not want to try fenofibrate alone. PCP did request a lipid panel which he has to get done fasting. Assessment & Plan (09/09/2021 9:22 AM EDT): Uncontrolled. I will prescribe fenofibrate and repeat lipid panel in 3 months. Assessment & Plan (06/10/2021 9:27 AM EST): His triglycerides will improve with glycemic control so the Metformin should help with this. He is also trying to work on decreasing the white foods. We will just limit how much he eats of these. The other thing he can do is exercise. He has a bad back. So I suggested stationary bike type of set up that should help him. Even if he cannot do any of these type of exercise maybe he can walk a few minutes at a time until he feels tired and then rest. He can break it up into 310-minute walks a day. The longer he does in terms of walking the more calories he rosen. Low back pain GERD (gastroesophageal reflux disease) HTN (hypertension) Class 3 severe obesity due t o excess calories without serious comorbidity with body mass index (BMI) of 50.0 to 59.9 in adult Assessment & Plan (12/24/2021 8:59 AM EDT): Unfortunately he could not tolerate fenofibrate topiramate. It is unclear which medication caused diarrhea so I think what we should do is try 1 medication at a time. In the meantime I cannot prescribe any medications because Medicare does not cover any of the obesity medications. I was trying to use generic medications for management of obesity. Patient did lose 8 pounds metformin could have helped with this. He is also monitoring his diet. He does not want to try fenofibrate so I offered just prescribing phentermine and topiramate to see if this medication works without any diarrhea but he does not want to try it. Assessment & Plan (09/09/2021 9:31 AM EDT): It appears that both Saxenda and Qsymia not covered so at this point I am giving him phentermine 4 mg and topiramate 25 mg for 14 days and then after he completes that he can take phentermine 8 mg and topiramate 50 mg onto the follow-up visit and hopefully this will help him decrease appetite and eat less and help him lose weight. Assessment & Plan (06/10/2021 9:43 AM EST): The patient inquire about injectable medications that can help with weight loss. He is referring to a GLP-1 agonist and we have Wegovy which is a weekly administration and Saxenda which is daily administration. Wegovy has been on backorder for a while so I suspect that Saxenda may be easier to obtain. It is unclear if it will be covered by his healthcare carrier. But I will prescribe it. If is not covered then I can prescribe Qsymia which is also a brand-name medication and then after that tried Contrave. If none in a month, then I can try combination generic. I did review with the patient that contraindications for using GLP-1 agonist have pancreatitis or medullary thyroid carcinoma. He does not have any of these. These medications are associated with nausea, vomiting, diarrhea, constipation. If he starts having vomiting and diarrhea probably will not tolerate the medication. But we do start out with a small dose and titrate up. So he may experience nausea but that should hopefully get better. In any case he should start with 0.6 mg daily and continue this medication for 1 or 2 weeks until he is ready to go up. This depends on how much nausea he is experiencing. Addendum: Prior to completion of the visit the patient was contacted by his pharmacy [facility]. They will not cover Saxenda so I went ahead and prescribed Qsymia. Encounters Date Type Department Care Team Description 02/26/2025 Refill [facility] Internal Medicine [address] [place] [address] Selvin Kelly MD Medication Refill (CSRP) 01/25/2025 Refill [facility] Internal [facility] [address] [place] [address] Selvin Kelly MD Medication Refill (CSRP) 01/19/2025 Refill [facility] [address] [place] [address] Bladimir Sun PA-C Medication Refill 12/28/2024 Refill [facility] [address] [place] [address] Selvin Kelly MD Medication Refill (CSRP) 12/28/2024 Refill [facility] [address] [place] [address] Selvin Kelly MD Medication Refill 12/22/2024 Refill [facility] [address] [place] [address] Selvin Kelly MD Medication Refill 12/17/2024 5:00 PM EDT Telemedicine - audio only [facility] [address] [place] [address] Selvin Kelly MD Chronic bilateral low back pain with sciatica, sciatica laterality unspecified (Primary Dx) 12/07/2024 Refill [facility] [address] [place] [address] Selvin Kelly MD Medication Refill from Last 3 Months Immunizations No known immunizations Family History Medical History Relation Comments Obesity Father Brain cancer Mother Cancer Mother Diabetes Mother Lung cancer Mother Relation Status Comments Father Mother Social History Tobacco Use Types Packs/Day Years Used Date Smoking Tobacco: Every Day Cigarettes 1.5 51.8 Started: 05/16/1973 Smokeless Tobacco: Never Tobacco Cessation:Ready to Q uit: Not Asked; Counseling Given: Not Answered Comments:Smokes between 1 to 1.5 PPD-noted 11/01/23 [...] on file Sexual Orientation Not on file Last Filed Vital Signs Vital Sign Reading Time Taken Comments Blood Pressure 126/80 11/21/2024 11:21 AM EDT Pulse 63 11/21/2024 11:21 AM EDT Temperature 36.7 C (98 F) 11/21/2024 11:21 AM EDT Respiratory Rate 27 11/21/2024 11:2 1 AM EDT Oxygen Saturation 98% 11/21/2024 11: 21 AM EDT Inhaled Oxygen Concentration - - Weight 150.8 kg (332 lb 6.4 oz) 025 11:21 AM EDT Height 168.8 cm (5' 6.46 ) 11/21/2024 1 1:21 AM EDT Body Mass Index 52.92 11/21/2024 11:21 AM EDT Plan of Treatment Upcoming Encounters Date Type Department Care Team (Late st Contact Info) Description 03/27/2025 11:30 AM EST Office Visit [facility] Internal Medicine [address] [place] [address] Selvin Kelly MD [address] [place] [address] Health Maintenance Due Date Last Done Comments HIV ONE-TIME SCREENING (18-65 YEARS) 1978 PNEUMOCOCCAL VACCINES (50+ years) (1 of 2 - PCV) 10/20/1979 COLOGUARD 2005 FOBT 2005 SIGMOIDOSCOPY 2005 VIRTUAL COLONOSCOPY 2005 RSV VACCINE (1 - Risk 50-74 years 1-dose series) 2010 ZOSTER VACCINES (1 of 2) 2010 FIT TEST 08/31/2022 08/31/2021 INFLUENZA VACCINE (#1) 2024 COVID-19 VACCINE ( - season) 2025 BLOOD PRESSURE 05/24/2025 11/21/2024 CREATININE LEVEL 08/07/2025 08/07/2024, , 03/14/2024, Additional history exists POTASSIUM LEVEL 08/07/2025 08/07/2024, 12/05/2023, 03/14/2024, Additional history exists LUNG CANCER SCREENING (LDCT Only) 09/20/2025 09/20/2024, 09/20/2023, 09/20/2023, Additional history exists DEPRESSION SCREENING 11/21/2025 11/21/2024, 05/21/19 20 SMOKING Hx and SMOKELESS TOBACCO SCREENING 11/21/2025 11/21/2024 Adult Td,Tdap Booster 10/30/2026 Postpo dominga from 1960 (Patient Declines / Guardian Declines) SCREENING FOR DIABETES 08/08/2027 , 08/07/2024, 06/19/2019 LIPID PANEL 08/07/2029 08/07/2024, 06/2 , 03/22/2023, Additional history exists COLONOSCOPY 05/26/2032 05/26/2022 COLORECTAL CANCER SCREENING 05/26/2032 HEPATITIS C SCREENING Completed 06/19/2019 , 06/04/2019, 06/04/2019 HEPATITIS A VACCINES Aged Out No long er eligible based on patient's age to complete this topic HIB VACCINES Aged Out No longer eligi ble based on patient's age to complete this topic MENINGOCOCCAL VACCINES (ACWY) Aged Out No longer eligible based on patient's age to complete this topic MENINGOCOCCAL VACCINES (B) Aged Out N o longer eligible based on patient's age to complete this topic Medical Devices Not on file Procedures Procedure Name Priority Date/Time Associated Diagnosis Comments LDCT PROCEDURE FOR RESULT ENTRY ONLY Routine 09/20/2024 9:02 AM EDT LIPID PANEL Routine 08/07/2024 9:00 AM EDT Hypertriglyceridemi a COMPREHENSIVE METABOLIC PANEL Routine 08/07/2024 9:00 AM EDT Class 3 severe obesity due to excess calories with serious comorbidity and body mass index (BMI) of 50.0 to 59.9 in adult Gastroesophageal reflux disease, unspecified whether esophagitis present COLONOSCOPY FOR RESULT ENTRY ONLY Routine 05/26/2022 HC BLOOD OCCULT FECAL HGB DETER IA QUAL FECES 1-3 Routine 08/31/2021 4:41 PM EDT Screen for colon cancer OUTSIDE GLUCOSE FASTING Routine 06/19/2019 OUTSIDE HEPATITIS C VIRUS SCREENING Routine 06/04/2019 from Last 3 Months or Most Recently Relevant to Health Maintenance Results * HM LDCT PROCEDURE FOR RESULT ENTRY ONLY (09/20/2024 9:02 AM EDT) us Historical Provider MD HEALTH MAINTENANCE Final Result * (ABNORMAL) Comprehensive metabolic panel (08/07/2024 9:00 AM EDT) SODIUM 140 133 - 146 mmol/L [facility] POTASSIUM 3.6 3.3 - 5.1 mmol/L [facility] CHLORIDE 97 96 - 108 mmol/L [facility] CO2 29 21 - 35 mmol/L [facility] BUN 13 6 - 19 mg/dL [facility] CREATININE 0.80 0.5 - 1.5 mg/dL [facility] GLUCOSE 115(H) 70 - 99 mg/dL [facility] ALBUMIN 4.5 3.9 - 4.8 g/dL [facility] TOTAL PROTEIN 7.1 6.5 - 8.0 g/dL [facility] CALCIUM 9.6 8.4 - 10.3 mg/dL [facility] ALKALINE PHOSPHATASE 66 39 - 117 U/L [facility] TOTAL BILIRUBIN 0.3 0.0 - 1.2 mg/dL [facility] AST 35 0 - 37 U/L [facility] ALT 49(H) 0 - 40 U/L [facility] GLOBULIN 2.6 1 - 4.8 g/dL [facility] EGFR 99 >59 mL/min/1.7 3m2 [facility] Comment:Estimated glomerular filtration rate calculated using the CKD-EPI refit equation. ANION GAP 18 10 - 20 mmol/L [facility] Blood 08/07/2024 9:00 AM EDT 08/07/2024 9:05 AM EDT us Selvin Kelly MD LAB BLOOD ORDERABLES Final Re sult [address] [address] * (ABNORMAL) Lipid panel (08/07/2024 9:00 AM EDT) HDL 49 mg/dL [facility] Comment: Interpretation <40 mg/dL: Low HDL cholesterol (major risk factor for CHD) Greater than or equal to 60 mg/dL: High HDL cholesterol ( negative risk factor for CHD) HDL - cholesterol is affected by a number of factors, e.g. smoking, excerise, hormones, sex and age. CHOLESTEROL 205 0 - 240 mg/dL [facility] TRIGLYCERIDES 196(H) 30 - 160 mg/dL [facility] LDL 117 50 - 129 mg/dL [facility] Comment: LDL levels in terms of risk for coronary heart disease: <100 mg/dL: Optimal 100-129 mg/dL: Near or above optimal 130-159 mg/dL: Borderline high 160-189 mg/dL: High >190 mg/dL: Very High CARDIAC RISK RATIO 4.2 3.4 - 5.0 [facility] Blood 08/07/2024 9:00 AM EDT 08/07/2024 9:05 AM EDT Selvin Kelly MD LAB BLOOD ORDERABLES Final Re sult Performing Organization Address [facility]/ZIP Co de Phone Number [address] [address] * COLONOSCOPY FOR RESULT ENTRY ONLY (05/26/2022) Pathologist [facility] Colonoscopy 3 yr recall Historical Provider HEALTH MAINTENANCE Final Result * (ABNORMAL) Fecal immunochemical test x1 (FIT) (08/31/2021 4:41 PM EDT) Pathologist [facility] Immuno Fecal Occult Positive(A ) Negative [facility] Stool (Stool) 08/31/2021 4:4 1 PM EDT 08/31/2021 4:44 PM EDT Selvin Kelly MD BODY FLUIDS AND STOOLS ORDERA BLES Final Result Performing Organization Address [facility]/State/ZIP Co de Phone Number [address] [address] * (ABNORMAL) Outside Glucose,Fasting (06/19/2019) Pathologist [facility] Glucose, fasting - External 103(A) 65 - 99 mg/dL Historical Provider LAB BLOOD ORDERABLES Tresa l Result * Outside Hepatitis C Virus Screening (06/04/2019) Pathologist [facility] Hepatitis C Screening - External Neg us Historical Provider LAB BLOOD ORDERABLES Tresa l Result from Last 3 Months or Most Recently Relevant to Health Maintenance Insurance MEDICARE PART A & B [facility] MEDICARE REPLACEMENT MEDICARE PART A & B [facility] MEDICARE REPLACEMENT MEDICARE PART A & B [facility] MEDICARE PART A & B [facility] MEDICARE PART A & B [facility] MEDICARE REPLACEMENT MEDICARE PART A & B [facility] MEDICARE PART A & B [facility] MEDICARE REPLACEMENT MEDICARE PART A & B [facility] MEDICARE REPLACEMENT MEDICARE PART A & B [facility] MEDICARE REPLACEMENT Care Teams Guest Services Agent Relationship Specialty Start Date End Date Selvin Kelly MD [address] [place] [address] [email or web address] PCP - General Internal Medicine 05/21/19 Desi Bey MD [address] [place] [address] [place] [address] Neurology 02/21/20 Hebert Panda MD [address] [place] [address] [place] [address] [email or web address] 02/22/20 Quoc Smith MD [address] [place] [address] Drive [address] [place] [address] Pulmonary Disease 06/30/23 Additional Source Comments The information contained in this document represents components of the legal health record. It is not the complete legal health record.[facility]
== END 2025-03-04 09:52 | disposition home or self-care (01) ==
LOC: HO.HPS 09:27
PROVIDERS: PCP Internal Medicine; Visit Provider Internal Medicine
DX: E66.01 Morbid (severe) obesity due to excess calories (principal); G47.33 Obstructive sleep apnea (adult) (pediatric); J45.909 Unspecified asthma, uncomplicated; F17.210 Nicotine dependence, cigarettes, uncomplicated
CPT/HCPCS: 99213

== ENCOUNTER → 2025-03-04 09:26 | Outpatient (BNVA) | payer MEDICARE, MEDICAID, SELFPAY | PROVIDERS: PCP Internal Medicine; Visit Provider Internal Medicine | DX: J45.909 Unspecified asthma, uncomplicated (principal); E66.01 Morbid (severe) obesity due to excess calories; G47.33 Obstructive sleep apnea (adult) (pediatric); F17.210 Nicotine dependence, cigarettes, uncomplicated; Z99.89 Dependence on other enabling machines and devices | CPT/HCPCS: 99212 ==

== ENCOUNTER → 2025-04-04 10:42 | Outpatient (REF) | payer MEDICARE, MEDICAID, SELFPAY ==
--- OUTSIDE RECORDS SUMMARY | 2024-04-03 04:30 | XMS_ITS ---
Author Organization [facility] Address [address] [place] [address] Care Team Providers Care Hair Baler Name Role Phone Robin BARRERA, Selvin Primary Care Provider UnavailTl Walls Unavailable [phone] Encounters Encounter Location Date Provider Diagnosis [facility] [address] [place] [address] 04/03/2024 Tl Sanchez Plan Of Treatment No Information Progress Notes * Zohaib THAYEROB: [birth year] (64 yo M)Acc No.[id number]:04/03/2024 Progress Notes Patient: Amadeo MILLAN Provider: Chhaya Sanchez DPM :1960 A ge:63 Y S ex:Male Date:04/03/2024 Address: [address] [facility] Pcp:Selvin Kelly MD Subjective: * Chief Complaints: * * Medical History: Objective: * Vitals: Assessment: Plan: * Treatment: * Images: * The named appointment provid er may or may not be the originator of this progress note, and it is not deemed complete until electronically signed by the appointment provider. Sign off status: Pending * Provider: Chhaya Sanchez DPM Date: 06/03/2023 Generated for Wilda mtz/Toni/Natanaelitting on: 06/04/2024 04:07 PM EST
--- NOTE | 2025-04-04 | HM_ITS ---
* Total monitoring time one day. * Underlying rhythm is sinus with an average rate of 69/Min. * Rare ventricular ectopy. * No significant pauses or high-grade AV blocks. * No patient markers or diary events. MTDD
--- OUTSIDE RECORDS SUMMARY | 2025-04-04 16:07 | XMS_ITS | Patient Health Record ---
Author Organization [facility] Address [address] [place] [address] Care Team Providers Care Acetone Button Paster Name Role Phone Selvin Kelly MD Primary Care Provider Unavaila Tl Stoddard Unavailable [phone] Reason For Referral No Information Plan Of Treatment No Information Insurance Providers Payer Name Payer Address Payer Phone Subscriber Number Group Number Insured Name Patient Relationship to Insured Coverage Start Date Coverage End Date Medicare [employer] [address] [facility] [address] [id number] Amadeo Jaime Self - patient is the insured A[employer] Secondary to Medicare [address] [place] [address] [phone] [id number] Amadeo Jaime Self - patient is the insured
== END ==
LOC: HO.CARD 10:42
PROVIDERS: PCP Internal Medicine; Visit Provider Internal Medicine
DX: R00.2 Palpitations (principal)
CPT/HCPCS: 93225

== ENCOUNTER → 2025-04-04 10:50 | Outpatient (BNV) | payer MEDICARE, MEDICAID, SELFPAY | PROVIDERS: PCP Internal Medicine; Visit Provider Internal Medicine | DX: R00.2 Palpitations (principal) | CPT/HCPCS: 93227 ==